=== PATIENT | male | born 1980 | race Caucasian/White ===

== ENCOUNTER 2023-08-14 22:22 | Emergency (ER) | payer OTHER, SELFPAY ==
[2023-08-14 22:26] VITALS: BP 118/97
[2023-08-14 22:45] LABS: % Basophils 0.5 % (0-2); % Eosinophils 2.1 % (0-6); % Immature Granulocytes 0.4 % (0-0.5); % Lymphocytes 27.1 % (20.5-51.1); % Monocytes 5.9 % (1.7-9.3); Absolute Basophils 0.1 10^3/uL (0-0.2); Absolute Eosinophils 0.3 10^3/uL (0-0.7); Absolute Immature Granulocytes 0.1 10^3/uL (0-0.05); Absolute Lymphocytes 3.7 10^3/uL (1.2-3.4); Absolute Monocytes 0.8 10^3/uL (0.1-0.6); Absolute Neutrophils 8.6 10^3/uL (1.4-6.5); Hemoglobin 15.2 g/dL (13.0-18.0); Mean Corpuscular Hgb 27.3 pg (27.0-31.0); Mean Corpuscular Volume 82.7 fL (80.0-94.0); Mean Platelet Volume 8.9 fL (7.4-10.4); Nucleated Red Blood Cells % 0 % (-); Platelet Count 257 10^3/uL (130-400); Red Blood Cell Count 5.56 10^6/uL (4.70-6.10); Red Cell Dist. Width 13.1 % (11.5-14.5); White Blood Cell Count 13.5 10^3/uL (4.8-10.8)
[2023-08-14 23:00] LABS: ALT (SGPT) 32 U/L (0-50); AST (SGOT) 30 U/L (17-59); Albumin 4.9 g/dl (3.5-5.0); Alkaline Phosphatase 100 U/L (38-126); Blood Urea Nitrogen 24 mg/dl (9-20); Calcium 9.6 mg/dl (8.4-10.2); Carbon Dioxide 28 mmol/L (22-30); Chloride 101 mmol/L (98-107); Glucose 137 mg/dl (70-99); Sodium 135 mmol/L (135-145); Total Bilirubin 0.5 mg/dl (0.2-1.3); eGFR > 60.00
[2023-08-14 23:12] LABS: Troponin I < 0.012 ng/ml
[2023-08-14 23:23] VITALS: BP 180/113
[2023-08-14 23:31] LABS: TSH Reflex To Free T4 4.61 uIU/ml (0.47-4.68)
--- NOTE | 2023-08-14 23:34 | ED.GENMED ---
History of Present Illness
<JAMEE Helms - Last Filed: 08/15/23 06:44>
General
Chief Complaint: Heart Rate Problem
Source: patient
Exam Limitations: none
Time Seen by Provider: 08/14/23 23:33
Travel History
Have you had any contact with someone who has COVID-19?: No
Do you have any symptoms of coronavirus? Fever > 100 degrees, chills, cough, shortness of breath, sore throat, loss of taste or smell, muscle aches, or headache?: No
History of Present Illness
History of Present Illness:
43 year old male with history of hypothyroidism on Synthroid presents w/ c/o palpitations x90 minutes. He reports he was putting his son to bed when he noticed his heart racing. He admits having a similar experience in December 2023. He was seen
here and had a negative cardiac work up. He had a Holter monitor placed for 48 hours. He denies follow up with cardiology. He denies any SOB, CP, weakness, or fatigue. He admits he has not been compliant with his Synthroid taking 'a quarter of his
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 He also admits to drinking increased amount of coffee.
Review of Systems
<JAMEE Helms - Last Filed: 08/15/23 06:44>
Review of Systems
Allergies reviewed?: Yes
All Other Systems: Not applicable
Constitutional: Reports no symptoms
EENT: Reports no symptoms
Respiratory: Reports no symptoms
Cardiac: Reports palpitations
ABD/GI: Reports no symptoms
: Reports no symptoms
Musculoskeletal: Reports no symptoms
Skin: Reports no symptoms
Neurological: Reports no symptoms
Endocrine: Reports no symptoms
Hematologic/Lymphatic: Reports no symptoms
Psychiatric: Reports no symptoms
Phy Exam
<Claire Oliver [facility] - Last Filed: 08/15/23 06:44>
General Physical Exam
General Presentation: well appearing and no apparent distress
General Skin: warm and dry
General Habitus: normal
General Mental: alert
General Hydration: appears well hydrated
ENT Exam
ENT Exam: EOMI, pharynx normal, neck supple and normocephalic
Eye Exam
Eye Exam: PERRL, cornea clear and conjunctiva normal
Cardiovascular Exam
Cardiovascular Exam: no edema, no murmur, normal peripheral pulses, irregularly irregular and tachycardia
Pulmonary Exam
Pulmonary Exam: lungs clear, no respiratory distress, no rales, no crackles, no rhonchi, no stridor, no wheezing and no cough
Gastrointestinal Exam
Gastrointestinal Exam: normal bowel sounds, non tender, soft, no organomegaly, no pulsatile mass and non distended
Neurological Exam
Neurological Exam: alert, oriented x3, no motor deficits and speech normal
Musculoskeletal Exam
Musculoskeletal Exam: full ROM and no edema
Skin Exam
Skin Exam: normal color, warm/dry, no rash and no petechia
Psychiatric Exam
Psychiatric Exam: normal mood/affect
Scores
<ST [facility] - Last Filed: 08/15/23 06:44>
[id number] Score for Afib Stroke Risk
Score: 1
Anticoagulation Recommendations: Consider anticoagulation (as validated in nonvalvular fib)
<Randi Patton DO - Last Filed: 08/15/23 03:42>
[id number] Score for Afib Stroke Risk
Age in Years (65=0, 65-74=1, >/=75=2): <65
Sex (Female=+1): Male
Congestive Heart Failure History (Yes=+1): No
Hypertension History (Yes=+1): Yes
Stroke/TIA/Thromboembolism History (Yes=+2): No
Vascular Disease History (Yes=+1): No
Diabetes Mellitus (Yes=+1): No
Score: 1
Anticoagulation Recommendations: Consider anticoagulation (as validated in nonvalvular fib)
Course
<JAMEE Helms - Last Filed: 08/15/23 06:44>
Orders/Labs/Results
Orders:
Orders
08/14/23 22:27
Electrocardiogram (*1) Urgent
Reason for Study: Palpitations
08/14/23 22:28
EKG- Treatment ONCE
08/14/23 22:39
Complete Blood Count/With Diff Urgent
Comprehensive Metabolic Panel Urgent
TSH Reflex To Free T4 Urgent
Troponin I Routine
08/14/23 23:33
Diltiazem 125 mg/125 ml Nss [Cardizem] 125 mg in 125 ml .ROUTE .STK-MED
Diltiazem HCl [Cardizem] 25 mg .ROUTE .STK-MED ONE
08/14/23 23:34
Diltiazem 125 mg/125 ml Nss [Cardizem] 125 mg in 125 ml IV NOW
Initial dose in mg/hr, then titrate:: 10
Titrate to keep:: Heart rate 80-100 bpm
Titrate by mg/hr:: 5 mg/hr
Frequency of titrations (minutes):: 15
Maximum dose in mg/hr:: 15
Diltiazem HCl [Cardizem] 20 mg IV NOW STA
08/15/23 00:53
Propofol [Diprivan] 20 ml .ROUTE .STK-MED
08/15/23 00:54
0.9% Sodium Chloride 1000 ml [Nss] 1,000 ml IV BOLUS
08/15/23 02:02
EKG [Electrocardiogram (*1)] Urgent
Reason for Study: Tachycardia
Other Reason for Exam: post conversion from a fib
08/15/23 02:03
EKG- Treatment ONCE
Abnormal Lab Results
08/14/23
22:39
WBC 13.5 H 10^3/uL
(4.8-10.8)
Abs Immat Gran (auto) 0.1 H 10^3/uL
(0-0.05)
Absolute Neuts (auto) 8.6 H 10^3/uL
(1.4-6.5)
Absolute Lymphs (auto) 3.7 H 10^3/uL
(1.2-3.4)
Absolute Monos (auto) 0.8 H 10^3/uL
(0.1-0.6)
BUN 24 H mg/dl
(9-20)
Glucose 137 H mg/dl
(70-99)
08/14/23 22:39
08/14/23 22:39
Vital Signs
Initial and Last Documented VS:
Initial Vital Signs
Temp Pulse Resp BP Pulse Ox
99.9 F 51 19 118/97 98
08/14/23 22:26 08/14/23 22:26 08/14/23 22:26 08/14/23 22:26 08/14/23 22:26
Last Documented Vital Signs
Temp Pulse Resp BP Pulse Ox
98.8 F 80 17 138/85 94
08/15/23 01:17 08/15/23 03:45 08/15/23 03:45 08/15/23 03:45 08/15/23 03:45
<Randi Patton, DO - Last Filed: 08/15/23 03:42>
Orders/Labs/Results
Orders:
Orders
08/14/23 22:27
Electrocardiogram (*1) Urgent
Reason for Study: Palpitations
08/14/23 22:28
EKG- Treatment ONCE
08/14/23 22:39
Complete Blood Count/With Diff Urgent
Comprehensive Metabolic Panel Urgent
TSH Reflex To Free T4 Urgent
Troponin I Routine
08/14/23 23:33
Diltiazem 125 mg/125 ml Nss [Cardizem] 125 mg in 125 ml .ROUTE .STK-MED
Diltiazem HCl [Cardizem] 25 mg .ROUTE .STK-MED ONE
08/14/23 23:34
Diltiazem 125 mg/125 ml Nss [Cardizem] 125 mg in 125 ml IV NOW
Initial dose in mg/hr, then titrate:: 10
Titrate to keep:: Heart rate 80-100 bpm
Titrate by mg/hr:: 5 mg/hr
Frequency of titrations (minutes):: 15
Maximum dose in mg/hr:: 15
Diltiazem HCl [Cardizem] 20 mg IV NOW STA
08/15/23 00:53
Propofol [Diprivan] 20 ml .ROUTE .STK-MED
08/15/23 00:54
0.9% Sodium Chloride 1000 ml [Nss] 1,000 ml IV BOLUS
08/15/23 02:02
EKG [Electrocardiogram (*1)] Urgent
Reason for Study: Tachycardia
Other Reason for Exam: post conversion from a fib
08/15/23 02:03
EKG- Treatment ONCE
Abnormal Lab Results
08/14/23
22:39
WBC 13.5 H 10^3/uL
(4.8-10.8)
Abs Immat Gran (auto) 0.1 H 10^3/uL
(0-0.05)
Absolute Neuts (auto) 8.6 H 10^3/uL
(1.4-6.5)
Absolute Lymphs (auto) 3.7 H 10^3/uL
(1.2-3.4)
Absolute Monos (auto) 0.8 H 10^3/uL
(0.1-0.6)
BUN 24 H mg/dl
(9-20)
Glucose 137 H mg/dl
(70-99)
08/14/23 22:39
08/14/23 22:39
Vital Signs
Initial and Last Documented VS:
Initial Vital Signs
Temp Pulse Resp BP Pulse Ox
99.9 F 51 19 118/97 98
08/14/23 22:26 08/14/23 22:26 08/14/23 22:26 08/14/23 22:26 08/14/23 22:26
Last Documented Vital Signs
Temp Pulse Resp BP Pulse Ox
98.8 F 80 17 138/85 94
08/15/23 01:17 08/15/23 03:45 08/15/23 03:45 08/15/23 03:45 08/15/23 03:45
Procedures
<Randi Patton, DO - Last Filed: 08/15/23 03:42>
Cardioversion
Indication:: Afib
Performed by:: MYSELF
Synchronized?: Yes
Energy Used: 200 joules
Number of attempts: 1
Successful?: Yes
Complications: NONE
ASA Risk Score: Class II
Any reaction or bad outcome to prior sedation/anesthesia?: No history of a reaction
Sedation level to be attained: moderate
Chart and allergies reviewed: Yes
Patient reassessed prior to sedation: Yes
Time out completed at (validating right patient & procedure): 01:15
History of difficult intubation: No
Airway free of obstruction: Yes
Patient has a gag reflex: Yes
Patient is able to open mouth: Yes
Patient has no dentures: Yes
Patient has no loose teeth: Yes
Medication administered by Provider during Moderate Sedation: IV Propofol (mg)
Total dose administered: 100
Time drug administered: 01:17
Start Time: :17
Stop Time: 01:33
<JAMEE Helms - Last Filed: 08/15/23 06:44>
MDM/Problems Addressed
Differential Diagnosis Includes:
Paroxysmal Afib, atrial flutter, tachycardia, thyroid disorder. Paroxysmal Afib was considered d/t ECG findings consistent with absent P waves and irregularly irregular pulse. Patient heart rate has been ranging 160-180 bpm. Patient's initial BP was
190/101. Thyroid disorder and recent changes to Synthroid dosage could be inducing afib. However, TSH levels are normal. Atrial flutter ruled out with ECG findings. IV Cardizem 5mg bolus given while in the ER with no resolution. Plan to electric
cardiovert with 200J for return of sinus rhythm.
<JAMEE Helms - Last Filed: 08/15/23 06:44>
*Critical Care Note
Total Time (30-74mins, 75-104mins- exclusive of procedures): Not Applicable
ED Attending Note
<JAMEE Helms - Last Filed: 08/15/23 06:44>
-
Portions of this chart may have been created with voice recognition software.� Occasional wrong word or��sound alike� substitutions may have occurred due to the inherent limitations of voice recognition software.
<Randi Patton DO - Last Filed: 08/15/23 03:42>
ED Attending Note
Patient seen and examined by attending physician: Yes
I performed the substantive portion of visit, reviewed & personally made and approve the management plan that is documented in note by myself or BRUNA.: Yes
I performed a history and physical exam of patient and discussed management with resident, I reviewed resident's note and agree with documented findings and plan of care.: Yes
ED Attending Note:
43-year-old gentleman with history of hypertension, hypothyroidism, prediabetes who complains of palpitations that began somewhat suddenly around 10 PM tonight while getting his children ready for bed. Palpitations have persisted prompting ED
visit. He does admit to somewhat similar sporadic palpitations last summer and was evaluated in this ED in December with unremarkable evaluation as well as unremarkable evaluation with his PCP.
No return of palpitations until tonight. He denies chest pain or shortness of breath, no dizziness nor lightheadedness.
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
His only daily medication is Synthroid. He tries to manage his hypertension with weight loss which he admits is difficult to do during tax season.
No history of drug use and lifelong non-smoker.
He admits to moderate daily caffeine use but no decongestant use.
No recent travel, denies leg pain or swelling.
GENERAL: Alert , in no apparent distress
EYE: pupils equal and reactive
NECK: Supple, no significant adenopathy.
ENT: o/p clr, mmm.
CARDIAC: Irregularly irregular, tachycardic
LUNGS: Clear breath sounds bilaterally, no acute respiratory distress,
ABDOMEN: Soft, without focal tenderness, no r/g, no cvat
NEUROLOGICAL: Alert and oriented, no focal neuro deficits
SKIN: Warm and dry, skin intact.
MUSCULOSKELETAL: No edema, well perfused.
PSYCH: Normal and appropriate interaction.
Patient presents with new onset atrial fibrillation with rapid ventricular response.
Moderate hypertension, he remains hemodynamically stable. Initial triage temperature recorded as 99.9 �F. Patient denies feeling febrile, no recent URI and repeat oral temperature, he is afebrile.
IV Cardizem bolus and drip initiated with no significant improvement in ventricular response. He does admit to improvement in palpitations however.
Labs show mildly elevated white blood cell count of 13.5, unremarkable chemistries. Random glucose of 137. Troponin is negative. TSH is normal at 4.61.
Will plan for electrical cardioversion. Risks and benefits discussed along with alternatives to treatment including trial of IV Pronestyl versus rebolus of IV Cardizem.
Patient agreeable to synchronized electrical cardioversion.
No history of adverse events with anesthesia. No loose teeth. He ate a banana just prior to onset of symptoms other than this his last meal was earlier in the evening.
08/15/2023 0208 AM
Patient cardioverted successfully with 1 synchronized shock 200 J. Moderate sedation with IV propofol. No complications during procedure.
Repeat EKG shows normal sinus rhythm at 99.
Patient is [id number] score of 1 for hypertension.
Due to cardioversion we will plan for 1 month course of Eliquis.
Discussed importance of prompt follow-up with cardiology for recheck and further evaluation.
Recommend he avoid any further alcoholic beverages, significantly curb caffeine consumption.
08/15/2023 0341 AM
Patient is bright and alert, remains in normal sinus rhythm. Hemodynamically stable.
Will discharge to home with 1 month course of Eliquis 5 mg twice daily.
Levothyroxine has been refilled.
Recommend prompt follow-up with cardiology for recheck.
Encouraged to avoid NSAIDs as well as aspirin while on Eliquis as well as avoid any further alcohol consumption.
Discharge Plan
Departure
Patient Disposition: Home (Routine Discharge)
Date of Disposition: 08/15/23
Time of Disposition: 03:32
Patient with high blood pressure during this ER visit?: Yes
Condition: Good
Discharge Problem:
Paroxysmal atrial fibrillation with rapid ventricular response
Instructions: Atrial Fibrillation (DC), Cardioversion (DC), Moderate Sedation in Adults (DC)
Prescriptions:
New
levothyroxine 50 mcg capsule
50 mcg PO DAILY Qty: 60 0RF
Eliquis 5 mg tablet
5 mg PO BID Qty: 28 0RF
No Action
levothyroxine [Levoxyl] 50 mcg Tablet
50 mcg PO DAILY
Referrals:
Tray Link MD [Family Provider] -
Magan Cage MD [Active] - Call in 1-3 days for appt
Interventions
Interventions:
*Risk Screen - Suicide Last Done: 08/15/23 04:00
*General Assessment Last Done: 08/14/23 22:32
*Neglect/Abuse Screening Last Done: 08/15/23 04:00
ED- Fall Risk Assessment Last Done: 08/14/23 23:45
*ED COVID-19 Vaccine History Last Done: 08/14/23 22:32
*Nursing Disposition Last Done: 08/15/23 04:00
ED- Cardiac Assessment Last Done: 08/14/23 23:45
ED- Pulmonary Assessment Last Done: 08/14/23 23:45
Discharge Date and Time
Discharge Date/Time: 08/15/23 04:00
Print Language: UKRAINIAN
[2023-08-14] MEDS: CARDIZEM 20 MG IV (23:37)
[2023-08-14] MEDS: CARDIZEM 125 IV (23:38)
[2023-08-14 23:45] VITALS: BP 197/101
[2023-08-14 23:51] VITALS: BMI 41.4
[2023-08-15] VITALS (23 sets, daily range): BP systolic 120–194; BP diastolic 70–128
[2023-08-15] MEDS: NSS 1000 IV (00:59)
== END 2023-08-15 04:00 | disposition home or self-care (01) ==
LOC: EMR 22:22
PROVIDERS: Emergency Medicine; EMERGENCY PHYSICIAN Emergency Medicine; FAMILY PHYSICIAN Family Medicine
DX: I48.0 Paroxysmal atrial fibrillation (principal); I10 Essential (primary) hypertension; E03.9 Hypothyroidism, unspecified; R73.03 Prediabetes; Z79.01 Long term (current) use of anticoagulants
CPT/HCPCS: 99284; 92960; 96374; 96376; 96361; 80053; 84443; 84484; 85025; 93005

== ENCOUNTER → 2023-09-18 07:13 | Outpatient (REF) | payer OTHER, SELFPAY | LOC: RCS 07:13 | PROVIDERS: ATTENDING PHYSICIAN Internal Medicine Cardiovascular Disease; FAMILY PHYSICIAN Family Medicine | DX: I48.91 Unspecified atrial fibrillation (principal) | CPT/HCPCS: 93306 ==

== ENCOUNTER → 2023-10-02 | Outpatient (REF) | payer OTHER, SELFPAY | LOC: DHSLP | PROVIDERS: ATTENDING PHYSICIAN Internal Medicine Cardiovascular Disease | DX: G47.33 Obstructive sleep apnea (adult) (pediatric) (principal) | CPT/HCPCS: 95800 ==

== ENCOUNTER 2025-03-29 15:43 | Inpatient (IN) | payer OTHER, SELFPAY ==
[2025-03-29 11:09] VITALS: BP 156/89
--- NOTE | 2025-03-29 11:45 | ED.GENMED ---
History of Present Illness
<Josephine Macedo MD, Resident - Last Filed: 03/29/25 15:01>
General
Chief Complaint: Abdominal Pain
Source: patient and significant other
Exam Limitations: none
Time Seen by Provider: 03/29/25 11:30
Nursing documentation reviewed up to this point in time: agreed with
History of Present Illness
History of Present Illness:
44yo M with a hx of HTN and hypothyroid who presents with subacute abdominal pain.
Pt began experiencing pain overnight on Saturday. Pain began in the epigastric, mid-abdominal area and recently localized to RLQ. That area is extremely tender and painful to touch. It also is more painful (8/10) with walking and with bending and
externally rotating R leg to tie his shoe. Since Sat pm, he has not had any PO intake of solids, and has drank some hot water and coffee. Feels dehydrated and feels nauseous, but primarily just has low appetite. No vomiting. No diarrhea. Has been
feeling constipated but had BM yesterday, which was non-bloody. Has been passing flatus and burping; feels bloated. Denies f/c. Has been urinating appropriately. Has not had appendix removed prior. Has not taken anything for the pain at home. Has no
hx of GERD; initial epigastric pain did not extend through chest and was not burning in nature.
Past History
<Josephine Macedo MD, Resident - Last Filed: 03/29/25 15:01>
Past History
ED Past Medical History: HTN and Hypothyroidism
ED Past Surgical History: None
Patient has exhibited threatening behavior?: No
Social History
Personal:
Living: with family
Review of Systems
<Josephine Macedo MD, Resident - Last Filed: 03/29/25 15:01>
Review of Systems
All Other Systems: ROS reviewed and negative except as documented in HPI and ROS
Constitutional: Reports no symptoms
EENT: Reports no symptoms
Respiratory: Reports no symptoms
Cardiac: Reports no symptoms
ABD/GI: Reports abdominal pain, nausea and constipated
: Reports no symptoms
Musculoskeletal: Reports no symptoms
Skin: Reports no symptoms
Neurological: Reports no symptoms
Psychiatric: Reports no symptoms
Phy Exam
<Josephine Macedo MD, Resident - Last Filed: 03/29/25 15:01>
General Physical Exam
General Presentation: mild distress
General age: appears stated age
General Skin: warm and dry
General Habitus: obese
General Mental: alert
Cardiovascular Exam
Cardiovascular Exam: regular rate/rhythm and no edema
Heart Sounds: normal
Pulmonary Exam
Pulmonary Exam: no respiratory distress
Gastrointestinal Exam
Gastrointestinal Exam: soft, non distended and tender (tender to palpation in RLQ ; no rebound, no guarding)
Neurological Exam
Neurological Exam: alert
Musculoskeletal Exam
Musculoskeletal Exam: full ROM and no edema
Skin Exam
Skin Exam: normal color
Psychiatric Exam
Psychiatric Exam: normal mood/affect
Course
<Josephine Macedo MD, Resident - Last Filed: 03/29/25 15:01>
Orders/Labs/Results
Orders:
Orders
03/29/25 11:13
EKG [Electrocardiogram (*1)] Urgent
Reason for Study: Abdominal Pain
EKG- Treatment ONCE
03/29/25 12:01
CT Abd/pelvis W Iv Cont Urgent
Comment:
Reason For Exam: suspect appendicitis
03/29/25 12:02
0.9% Sodium Chloride 1000 ml [Nss] 1,000 ml IV BOLUS
03/29/25 12:13
Complete Blood Count/With Diff Urgent
Comprehensive Metabolic Panel Urgent
03/29/25 12:21
Ketorolac [Toradol] 15 mg IV NOW STA
03/29/25 14:00
LevoFLOXacin 750 MG/150 ML [Levaquin] 750 mg in 150 ml IV Q24H
MetroNIDAZOLE 500 MG/100 ML [Flagyl 500 mg] 100 ml IV Q12H
Abnormal Lab Results
03/29/25
12:13
WBC 18.5 H 10^3/uL
(4.8-10.8)
Abs Immat Gran (auto) 0.1 H 10^3/uL
(0-0.05)
Absolute Neuts (auto) 15.1 H 10^3/uL
(1.4-6.5)
Absolute Monos (auto) 1.9 H 10^3/uL
(0.1-0.6)
Neutrophils % 81.7 H %
(42.2-75.2)
Lymphocytes % 7.2 L %
(20.5-51.1)
Monocytes % 10.3 H %
(1.7-9.3)
Sodium 132 L mmol/L
(135-145)
Chloride 95 L mmol/L
(98-107)
Glucose 117 H mg/dl
(70-99)
Total Bilirubin 3.3 H mg/dl
(0.2-1.3)
03/29/25 12:13
03/29/25 12:13
Vital Signs
Initial and Last Documented VS:
Initial Vital Signs
Temp Pulse Resp BP Pulse Ox
99.6 F 100 18 156/89 96
03/29/25 11:09 03/29/25 11:09 03/29/25 11:09 03/29/25 11:09 03/29/25 11:09
Last Documented Vital Signs
Temp Pulse Resp BP Pulse Ox
99.6 F 96 18 149/78 97
03/29/25 11:09 03/29/25 12:00 03/29/25 12:00 03/29/25 12:00 03/29/25 12:00
<Eddie Kamara, DO - Last Filed: 03/29/25 13:54>
Orders/Labs/Results
Orders:
Orders
03/29/25 11:13
EKG [Electrocardiogram (*1)] Urgent
Reason for Study: Abdominal Pain
EKG- Treatment ONCE
03/29/25 12:01
CT Abd/pelvis W Iv Cont Urgent
Comment:
Reason For Exam: suspect appendicitis
03/29/25 12:02
0.9% Sodium Chloride 1000 ml [Nss] 1,000 ml IV BOLUS
03/29/25 12:13
Complete Blood Count/With Diff Urgent
Comprehensive Metabolic Panel Urgent
03/29/25 12:21
Ketorolac [Toradol] 15 mg IV NOW STA
03/29/25 14:00
LevoFLOXacin 750 MG/150 ML [Levaquin] 750 mg in 150 ml IV Q24H
MetroNIDAZOLE 500 MG/100 ML [Flagyl 500 mg] 100 ml IV Q12H
Abnormal Lab Results
03/29/25
12:13
WBC 18.5 H 10^3/uL
(4.8-10.8)
Abs Immat Gran (auto) 0.1 H 10^3/uL
(0-0.05)
Absolute Neuts (auto) 15.1 H 10^3/uL
(1.4-6.5)
Absolute Monos (auto) 1.9 H 10^3/uL
(0.1-0.6)
Neutrophils % 81.7 H %
(42.2-75.2)
Lymphocytes % 7.2 L %
(20.5-51.1)
Monocytes % 10.3 H %
(1.7-9.3)
Sodium 132 L mmol/L
(135-145)
Chloride 95 L mmol/L
(98-107)
Glucose 117 H mg/dl
(70-99)
Total Bilirubin 3.3 H mg/dl
(0.2-1.3)
03/29/25 12:13
03/29/25 12:13
Vital Signs
Initial and Last Documented VS:
Initial Vital Signs
Temp Pulse Resp BP Pulse Ox
99.6 F 100 18 156/89 96
03/29/25 11:09 03/29/25 11:09 03/29/25 11:09 03/29/25 11:09 03/29/25 11:09
Last Documented Vital Signs
Temp Pulse Resp BP Pulse Ox
99.6 F 96 18 149/78 97
03/29/25 11:09 03/29/25 12:00 03/29/25 12:00 03/29/25 12:00 03/29/25 12:00
<Josephine Macedo MD, Resident - Last Filed: 03/29/25 15:01>
MDM/Problems Addressed
Differential Diagnosis Includes:
Suspect acute appendicitis (migrating general/epigastric abd pain to RLQ localized, exacerbated by bending/walking)
Other ddx:
Constipation, colicky gas pain (not relieved w BM yesterday)
SBO (bloating, nausea, no appetite, but pt with flatus & BM)
Psoas or intraabdominal abscess (less likely given lack of fever, onset)
Colitis/enteritis (no diarrhea, no LLQ pain)
Renal calculi (no dysuria, no flank pain)
CO (r/o w EKG)
MDM/Problems Addressed:
- CT a/p w IV contrast
- 1L NSS IVF
- Toradol 15mg IM
- EKG
<Josephine Macedo MD, Resident - Last Filed: 03/29/25 15:01>
*Pulse Oximetry
SaO2: 96
Oxygen Mode of Delivery: Room air
Patient hypoxic: no
*Critical Care Note
Total Time (30-74mins, 75-104mins- exclusive of procedures): Not Applicable
<Josephine Macedo MD, Resident - Last Filed: 03/29/25 15:01>
Update Note
Update Note:
1:45pm
CT a/p w evidence of perforated Meckel's diverticulum:
IMPRESSION: As described above, CT findings are highly suggestive of perforation of Meckel's diverticulum within the right upper quadrant. Adjacent contained extraluminal air with significant inflammatory stranding of the fat in the right upper
quadrant, and inflammatory thickening of adjacent small bowel loops and right colon.
No evidence for free intraperitoneal air in the rest of the abdomen or pelvis. No evidence of drainable abscess.
Fatty infiltration of the liver.
Will start IV abx (levofloxacin & metronidazole; pt has penicillin allergy)
Will plan for admission to hospitalist service
<Eddie Kamara DO - Last Filed: 03/29/25 13:54>
Update Note
Update Note:
1:45pm
CT a/p w evidence of perforated Meckel's diverticulum:
IMPRESSION: As described above, CT findings are highly suggestive of perforation of Meckel's diverticulum within the right upper quadrant. Adjacent contained extraluminal air with significant inflammatory stranding of the fat in the right upper
quadrant, and inflammatory thickening of adjacent small bowel loops and right colon.
No evidence for free intraperitoneal air in the rest of the abdomen or pelvis. No evidence of drainable abscess.
Fatty infiltration of the liver.
Will start IV abx & plan for admission to hospitalist service.
1353 CT shows localized perforation of the bowel. Question related to Meckel's diverticulum. Given his leukocytosis and contained perforation, IV antibiotics and admit
ED Attending Note
<Josephine Macedo MD, Resident - Last Filed: 03/29/25 15:01>
-
Portions of this chart may have been created with voice recognition software.� Occasional wrong word or��sound alike� substitutions may have occurred due to the inherent limitations of voice recognition software.
<Eddie Kamara DO - Last Filed: 03/29/25 13:54>
ED Attending Note
Patient seen and examined by attending physician: Yes
I performed a history and physical exam of patient and discussed management with resident, I reviewed resident's note and agree with documented findings and plan of care.: Yes
ED Attending Note:
44-year-old male presents with right-sided abdominal discomfort that began early Saturday morning and has persisted. No vomiting but does admit to mild loss of appetite. No hematochezia or hematemesis. Exam: Obese, moderate right sided abdominal
tenderness, moderate right lower quadrant tenderness, no peritoneal findings, no respiratory distress. Assessment plan: Suspect appendicitis. Check CT, labs and reassess
Discharge Plan
Departure
Patient Disposition: Admit
Date of Disposition: 03/29/25
Time of Disposition: 14:12
Admit to: Med/Surg
Admit to doctor: Jaspal Levin
Presentation/result/management discussed w/ accepting MD/DO: General Surgery
Patient with high blood pressure during this ER visit?: Yes
Condition: Fair
Covid-19: Not Applicable
Discharge Problem:
Perforated abdominal viscus
Prescriptions:
No Action
levothyroxine [Levoxyl] 50 mcg Tablet
50 mcg PO DAILY
amlodipine [Norvasc] 5 mg Tablet
5 mg PO QPM
Referrals:
Wilmer Corley Jr., [Family Provider, Internal Medicine]
Interventions
Interventions:
*Risk Screen - Suicide Last Done: 03/29/25 11:12
*General Assessment Last Done: 03/29/25 11:12
*Neglect/Abuse Screening Last Done: 03/29/25 12:00
*ED COVID-19 Vaccine History Last Done: 03/29/25 11:12
*ED Influenza Vaccine History Last Done: 03/29/25 11:12
[facility] Fall Risk Assessment Tool Last Done: 03/29/25 12:02
LB-Vxbrfh-Brqyiljdou Assessment Last Done: 03/29/25 12:00
Discharge Date and Time
Print Language: SAMI
[2025-03-29 11:58] VITALS: BMI 41.5
[2025-03-29 12:00] VITALS: BP 149/78
[2025-03-29] MEDS: NSS 1000 IV ×2 (12:22→19:44)
[2025-03-29] MEDS: TORADOL 15 MG IV (12:22)
[2025-03-29 12:29] LABS: Hematocrit 44.7 % (39.0-52.0); Hemoglobin 14.9 g/dL (13.0-18.0); Mean Corp Hgb Conc. 33.3 g/dL (33.0-37.0); Mean Corpuscular Volume 81.9 fL (80.0-94.0); Nucleated Red Blood Cells % 0 % (-); Platelet Count 232 10^3/uL (130-400); Red Cell Dist. Width 13.4 % (11.5-14.5)
[2025-03-29 12:45] LABS: ALT (SGPT) 19 U/L (0-50); AST (SGOT) 17 U/L (17-59); Albumin 4.7 g/dl (3.5-5.0); Alkaline Phosphatase 85 U/L (38-126); Blood Urea Nitrogen 12 mg/dl (9-20); Calcium 9.0 mg/dl (8.4-10.2); Carbon Dioxide 28 mmol/L (22-30); Chloride 95 mmol/L (98-107); Estimated Creatinine Clearance 117 ml/min; Glucose 117 mg/dl (70-99); Potassium 4.2 mmol/L (3.5-5.1); Sodium 132 mmol/L (135-145); Total Protein 7.8 g/dl (6.3-8.2); eGFR > 60.00
[2025-03-29] MEDS: FLAGYL 500 MG 100 IV (14:15)
--- NOTE | 2025-03-29 14:54 | HPS.HSE ---
Addendum entered and electronically signed by Jaspal Levin MD 03/30/25 08:54:
This is a delayed entry note, I saw and examined the patient independently on 03/29/2025.
The [employer]'s note was reviewed and I agree with the note, assessment and plan except where noted below.
Comment: This is a 44-year-old male premature , open bilateral inguinal hernia repair as an who presents with 1 day of sudden onset right-sided abdominal pain that initially began more midline and then transition to the right upper
quadrant. CT imaging concerning for a contained perforated Meckel's diverticulum. Clinically stable, exam reassuring. Will manage nonoperatively for now.
- No acute surgical intervention at this time.
- Admit to inpatient-[facility]- General Surgery - Dr. Levin for perforated Meckel's diverticulum
- Condition: Stable
- Vitals: q4h
- Activity: Unlimited
- Nursing Instructions: TLD: None Wound Care: N/a
- GI/Diet: NPO, IV fluids, Zofran PRN
- Abx: Zosyn
- Labs: CMP, CBC
- Pain: Tylenol 650 q6h fito, Oxy 5mg q6h prn, Dilaudid 0.5mg q2h prn
- PPx: SQH q12, SCDs, Incentive Spirometer
- Home Meds: Cardiopulm: Amlodipine Endo: Levothyroxine
- Consults: None
Original Note:
Family Physician
-
Family Physician: Wilmer Corley Jr.
Chief Complaint
-
abdominal pain
History of Present Illness
44 yo male with a h/o htn, hypothryoid, and bilateral inguinal hernia repair as an infant who presents through the ED today with right sided abdominal pain. He notes that the pain awakened him from sleep yesterday morning around 1-2am. Initially,
the pain was more predominant just below the rib cage but now has localized to the right lateral mid/hemiabdomen with focal tenderness present without rebound, rigidity or guarding. He denies nausea or vomiting. He felt he may have been constipated
but was passing regular BM's prior to onset of pain. He notes bloating and anorexia. He has been passing flatus. He denies fevers or chills.
Medical History
Past Medical History
Past Medical History: Reports HTN, Hypothyroidism and Other (morbid obesity)
Past Surgical History: Reports Other (Bilateral inguinal hernia repair as a child)
Social History
Tobacco: Non-smoker
Alcohol: Other (rare)
Personal:
Living: With Family
Family History
Family History: Not pertinent
Allergies / Home Medications
Allergies reflects when Allergies were last updated in [facility].
Home Medications with original date entered in [facility]
Allergy/Medication List:
Patient Allergies
Allergy/AdvReac Type Severity Reaction Status Date / Time
Penicillins Allergy Hives Verified 03/29/25 11:11
�Medication �Instructions �Recorded �Confirmed �Type
levothyroxine 50 mcg tablet 50 mcg PO DAILY Thyroid 08/14/23 03/29/25 History
(Levoxyl)
amlodipine 5 mg tablet (Norvasc) 5 mg PO QPM Blood Pressure 03/29/25 03/29/25 History
Review of Systems
-
History Source: Patient and Family
A 12 point ROS was completed and negative except as noted: Yes
Physical Exam
Vital Signs
Vital Signs
Temp Pulse Resp BP Pulse Ox
99.6 F 96 18 149/78 97
03/29/25 11:09 03/29/25 12:00 03/29/25 12:00 03/29/25 12:00 03/29/25 12:00
Physical Exam
General: Well Developed and No Apparent Distress
HEENT: NormoCephalic and Moist mucous membranes
Respiratory: Non Labored Respirations
GI: Soft, Non Distended, Tender (right lateral mid/hemiabdomen) and Other (no rebound, rigidity or guarding)
Skin: Warm and Dry
Neuro: Awake, Alert and AO x 3
Psych: Calm
Laboratory Results
-
03/29/25 12:13
03/29/25 12:13
Laboratory Results
Total Bilirubin 3.3 mg/dl (0.2-1.3) H 03/29/25 12:13
AST 17 U/L (17-59) 03/29/25 12:13
ALT 19 U/L (0-50) 03/29/25 12:13
Alkaline Phosphatase 85 U/L (38-126) 03/29/25 12:13
Data Reviewed
-
CT Scan: Image Personally Visualized and interpreted, Report Reviewed by me, Discussed with Physician, Discussed with Patient and Discussed with Family
Lab Data: Labs Reviewed by me, Discussed with Physician, Discussed with Patient and Discussed with Family
Old Records: Reviewed
Impression/Plan
-
IMPRESSION: 44 yo male with a h/o htn, hypothyroid, and bilateral inguinal hernia repair as an who presents through the ED today with right sided abdominal pain over the past 36+hours. No associated fevers, nausea or vomiting. Does have
anorexia and bloating. Focally tender to the right lateral hemiabdomen without peritonitic signs. CT imaging reviewed and consisted with contained perforation of a Meckel's diverticulum. Inflammatory changes to adjacent small and large bowel. No
abscess currently present. Leukocytosis present with WBC of 18.5. Mild hyponatremia with top normal creatinine suspect secondary to hypovolemia. Afebrile. VSS without hypotension or tachycardia.
PLAN:
Admit to surgical service
IV zosyn being initiated in the ED at pharmacist recommendation, will continue if no allergic reaction otherwise will start levo/flagyl
IVF with NSS @100ml/hr
NPO with ice chips/meds
Lovenox and scds for VTE ppx
No plans for emergent surgery today, will follow closely on antibiotics and bowel rest. Ideally, will be able to get him through this acute issue with nonoperative measures to pursue interval SBR after inflammatory process has had time to
improve/resolve. May require emergent surgery this admission if his condition deteriorates vs IR drain placement if abscess forms.
--- NOTE | 2025-03-29 15:42 | CM ---
chart reviewed and spoke with patient at ED bedside
Lives with , 2 kids and a dog name Drew
Independent with ADLs and working [employer]
no DME
PCP Dr. Wilmer Castellano
RX plan yes
Pharmacy [facility] on [address]
no hx of VN nor SNF
DCP is to go home with no needs
can drive him home at DC
CM will continue to follow up for any dcp needs
[2025-03-29] MEDS: ZOSYN 50 IV ×2 (16:02→21:30)
[2025-03-29 16:10] VITALS: BP 127/58
[2025-03-29 18:21] VITALS: BP 141/93; BMI 40.0
--- NOTE | 2025-03-29 18:55 | PTCARENOTE ---
received pt from ER via stretcher, accompanied by ER staff. Pt AAO x3, HUYNH well, ambulatory to bed, no c/o weakness. VSS. On room air- pulse ox 95%. Abd obese, soft, tender RLQ. Pt NPO except for meds/sips clears/ice chips. Oriented to [facility],
currently resting in bed. Will continue to monitor.
[2025-03-29] MEDS: LOVENOX 40 MG SC (19:42)
[2025-03-29] MEDS: TORADOL 10 MG IV (19:42)
[2025-03-29] MEDS: NORVASC 5 MG PO (19:44)
[2025-03-29 23:00] VITALS: BP 136/74
[2025-03-30] MEDS: NSS 1000 IV ×3 (03:25→17:12)
[2025-03-30] MEDS: ZOSYN 50 IV ×4 (03:25→21:41)
[2025-03-30] MEDS: SYNTHROID 50 MCG PO (06:20)
[2025-03-30 07:36] LABS: Hematocrit 40.2 % (39.0-52.0); Hemoglobin 13.2 g/dL (13.0-18.0); Mean Corp Hgb Conc. 32.8 g/dL (33.0-37.0); Mean Corpuscular Volume 83.4 fL (80.0-94.0); Platelet Count 202 10^3/uL (130-400); Red Cell Dist. Width 13.3 % (11.5-14.5)
[2025-03-30 08:10] LABS: ALT (SGPT) 16 U/L (0-50); AST (SGOT) 15 U/L (17-59); Albumin 3.7 g/dl (3.5-5.0); Alkaline Phosphatase 78 U/L (38-126); Blood Urea Nitrogen 15 mg/dl (9-20); Calcium 8.3 mg/dl (8.4-10.2); Carbon Dioxide 28 mmol/L (22-30); Chloride 102 mmol/L (98-107); Estimated Creatinine Clearance 106 ml/min; Glucose 99 mg/dl (70-99); Potassium 3.8 mmol/L (3.5-5.1); Sodium 135 mmol/L (135-145); Total Protein 6.6 g/dl (6.3-8.2); eGFR > 60.00
[2025-03-30 08:23] VITALS: BP 138/71
--- NOTE | 2025-03-30 11:49 | W.PN.GS2 ---
Today's Communication / Plan
-
-- Clears
-- Abx: Zosyn
-- Timing and need for operative intervention pending clinical course over the next 24-48 hours
Assessment / Plan
-
Patient is a 44 yo M p/w acute Meckel's diverticulitis
AVSS
Labs notable for downtrending WBC
Clinical stability with slight improvement in ability to tolerate liquids and downtrending WBC. The natural history and pathophysiology of Meckel's diverticulum's and diverticulitis was reviewed. Plan for continued medical management. We
discussed that should he have worsening pain or a rise in his WBC would recommend operative intervention during this presentation.
-- Clears
-- Abx: Zosyn
-- Timing and need for operative intervention pending clinical course over the next 24-48 hours
Subjective Data
-
Date of Service: March 30, 2025
Major complaints. Denies any worsening abdominal pain. No nausea or vomiting. No fevers. Reports passing flatus, no BMs. Reports tolerating water without any issues.
Objective Data
-
Intake and Output
03/29/25 03/30/25 03/31/25
06:59 06:59 06:59
Output Total 400 / 400
Balance -400 / -400
Output:
Urine, Voided 400 / 400
Vital Signs
Temp Pulse Resp BP Pulse Ox
98.1 F 80 18 138/71 93
03/30/25 08:23 03/30/25 08:23 03/30/25 08:23 03/30/25 08:23 03/30/25 08:23
Lab Results
03/30/25 06:56
03/30/25 06:56
Calcium 8.3 mg/dl (8.4-10.2) L 03/30/25 06:56
Total Bilirubin 3.3 mg/dl (0.2-1.3) H 03/30/25 06:56
AST 15 U/L (17-59) L 03/30/25 06:56
ALT 16 U/L (0-50) 03/30/25 06:56
Alkaline Phosphatase 78 U/L (38-126) 03/30/25 06:56
Total Protein 6.6 g/dl (6.3-8.2) 03/30/25 06:56
Albumin 3.7 g/dl (3.5-5.0) 03/30/25 06:56
Physical Exam
-
Gen: NAD
Abd: soft, focally tender in RLQ/mid-abdomen, no diffuse pain, obese, non-peritoneal
Patient has a romero catheter: No
Patient has a central line: No
[2025-03-30 15:49] VITALS: BP 149/70
[2025-03-30] MEDS: LOVENOX 40 MG SC (17:10)
[2025-03-30] MEDS: NORVASC 5 MG PO (17:10)
[2025-03-30 23:39] VITALS: BP 142/76
[2025-03-31] MEDS: NSS 1000 IV (02:12)
[2025-03-31] MEDS: ZOSYN 50 IV ×4 (03:37→21:59)
[2025-03-31] MEDS: SYNTHROID 50 MCG PO (06:14)
[2025-03-31 07:40] VITALS: BP 155/79
--- NOTE | 2025-03-31 12:23 | W.PN.GS2 ---
Today's Communication / Plan
-
FLD
Abx
Assessment / Plan
-
Patient is a 44 yo M p/w acute Meckel's diverticulitis
AVSS
Labs notable for downtrending WBC
Clinical stability with slight improvement in ability to tolerate liquids and downtrending WBC. The natural history and pathophysiology of Meckel's diverticulum's and diverticulitis was reviewed. Plan for continued medical management. We
discussed that should he have worsening pain or a rise in his WBC would recommend operative intervention during this presentation.
-- Adv to fulls
-- Recheck labs tomorrow am
-- Abx: Zosyn
-- Serial exams
-- If continued improvement, plan to defer surgery to outpt
-- If WBC increase, fever or other clinical decline, would rpt imaging
-- DVT ppx
-- Ambulate
Subjective Data
-
Date of Service: March 31, 2025
AFVSS, feels much improved, pain nearly resolved, dneies n/v, amaris cld
Objective Data
-
Intake and Output
03/30/25 03/31/25 04/01/25
06:59 06:59 06:59
Intake Total 480 / 480 50 / 50
Output Total 400 / 400
Balance 80 / 80 50 / 50
Intake:
Oral fluids 480 / 480
IV piggybacks 50 / 50
Output:
Urine, Voided 400 / 400
Other:
Number of approximated MODERATE 1
amounts of urine
Vital Signs
Temp Pulse Resp BP Pulse Ox
97.8 F 78 16 155/79 97
03/31/25 07:40 03/31/25 07:40 03/31/25 07:40 03/31/25 07:40 03/31/25 07:40
Lab Results
03/30/25 06:56
03/30/25 06:56
Calcium 8.3 mg/dl (8.4-10.2) L 03/30/25 06:56
Total Bilirubin 3.3 mg/dl (0.2-1.3) H 03/30/25 06:56
AST 15 U/L (17-59) L 03/30/25 06:56
ALT 16 U/L (0-50) 03/30/25 06:56
Alkaline Phosphatase 78 U/L (38-126) 03/30/25 06:56
Total Protein 6.6 g/dl (6.3-8.2) 03/30/25 06:56
Albumin 3.7 g/dl (3.5-5.0) 03/30/25 06:56
Physical Exam
-
Gen: NAD
Abd: soft, obese, minimal ttp to ruq
Patient has a romero catheter: No
Patient has a central line: No
--- NOTE | 2025-03-31 13:16 | CM ---
Patient seen bedside.
Patient stated surgery may be pushed until April.
Denies home care needs at this time, thinks he will be transitioned to oral anbx.
Plan: home, no needs anticipated.
[2025-03-31 15:05] VITALS: BP 163/88
[2025-03-31] MEDS: LOVENOX 40 MG SC (17:25)
[2025-03-31] MEDS: NORVASC 5 MG PO (17:27)
[2025-03-31 23:56] VITALS: BP 145/79
[2025-04-01] MEDS: ZOSYN 50 IV ×2 (03:56→09:59)
[2025-04-01] MEDS: SYNTHROID 50 MCG PO (05:12)
[2025-04-01 08:21] LABS: Hematocrit 41.1 % (39.0-52.0); Hemoglobin 13.6 g/dL (13.0-18.0); Mean Corp Hgb Conc. 33.1 g/dL (33.0-37.0); Mean Corpuscular Volume 83.0 fL (80.0-94.0); Platelet Count 285 10^3/uL (130-400); Red Cell Dist. Width 12.9 % (11.5-14.5)
[2025-04-01 08:23] VITALS: BP 155/71
[2025-04-01 08:53] LABS: Blood Urea Nitrogen 11 mg/dl (9-20); Calcium 8.8 mg/dl (8.4-10.2); Carbon Dioxide 28 mmol/L (22-30); Chloride 99 mmol/L (98-107); Estimated Creatinine Clearance 106 ml/min; Glucose 95 mg/dl (70-99); Potassium 4.3 mmol/L (3.5-5.1); Sodium 137 mmol/L (135-145); eGFR > 60.00
--- NOTE | 2025-04-01 09:43 | W.PN.GS2 ---
Today's Communication / Plan
-
-- LRD
-- Abx: Zosyn, DC on Augmentin for 7 days
-- OK for DC if tolerating diet
Assessment / Plan
-
Patient is a 44 yo M p/w acute Meckel's diverticulitis
AVSS
Labs notable for downtrending WBC
Clinical improvement - less pain, tolerating diet, and downtrending WBC. Plan for continued medical management. If tolerates low residue diet will plan for discharge with outpatient antibiotic management and close interval follow-up with repeat CT
scan imaging to confirm resolution and for operative planning as a relates to future surgery. Dietary education provided. All questions answered.
-- LRD
-- Abx: Zosyn, DC on Augmentin for 7 days
-- DVT: Lovenox
-- OK for DC if tolerating diet
Subjective Data
-
Date of Service: April 01, 2025
No complaints. Feels improved. Less abdominal pain and discomfort. Tolerated fulls, no nausea or vomiting. Passing flatus and stools.
Objective Data
-
Intake and Output
03/31/25 04/01/25 04/02/25
06:59 06:59 06:59
Intake Total 480 / 480 1960 / 1960
Output Total 400 / 400 600 / 600
Balance 80 / 80 1360 / 1360
Intake:
Oral fluids 480 / 480 1860 / 1860
IV piggybacks 100 / 100
Output:
Urine, Voided 400 / 400 600 / 600
Other:
Number of approximated MODERATE 1 3 1
amounts of urine
Vital Signs
Temp Pulse Resp BP Pulse Ox
97.9 F 70 18 155/71 97
04/01/25 08:23 04/01/25 08:23 04/01/25 08:23 04/01/25 08:23 04/01/25 08:23
Lab Results
04/01/25 06:50
04/01/25 06:50
Calcium 8.8 mg/dl (8.4-10.2) 04/01/25 06:50
Total Bilirubin 3.3 mg/dl (0.2-1.3) H 03/30/25 06:56
AST 15 U/L (17-59) L 03/30/25 06:56
ALT 16 U/L (0-50) 03/30/25 06:56
Alkaline Phosphatase 78 U/L (38-126) 03/30/25 06:56
Total Protein 6.6 g/dl (6.3-8.2) 03/30/25 06:56
Albumin 3.7 g/dl (3.5-5.0) 03/30/25 06:56
Physical Exam
-
Gen: NAD
Abd: soft, minimal RIGHT mid-abdominal tenderness, ND/obese, non-peritoneal (overall improved)
Patient has a romero catheter: No
Patient has a central line: No
--- NOTE | 2025-04-01 10:09 | CM ---
MD entered order for discharge.
Spoke with pt he ordered a meal . Pt needs to tolerate meal prior to dc.
Pt agrees with dc today .
His Kendra will drive him home.
PLAN Home no needs
--- NOTE | 2025-04-02 11:57 | W.DS.TRANS ---
Addendum entered and electronically signed by DIETER Hawkins 04/02/25 12:01:
dictated #[id number]
Original Note:
DC Summary - [employer]
-
Discharge Instructions:
Discharge Diagnosis/Procedures Meckel's diverticulitis
Diet Low Residue
Additional Diets Avoid high-fiber foods such as raw fruits and
raw vegetables, large amounts of nuts or seeds
Activity As tolerated
Driving Restrictions As prior to admission
Bathing Restrictions None
Others Tests CT abdomen/pelvis prior to follow-up appointment
Instructions:
Stand-Alone Forms:
Changes to Home Medications: No
Discharge Medications:
DC Medications w/original date entered in [facility]
levothyroxine 50 mcg tablet (Levoxyl) 50 mcg PO DAILY Thyroid 08/14/23
amlodipine 5 mg tablet (Norvasc) 5 mg PO QPM Blood Pressure 03/29/25
acetaminophen 325 mg tablet 650 mg (2 x 325 mg) PO Q4HPRN PRN mild pain #1 tab 04/01/25
amoxicillin 875 mg-potassium clavulanate 125 mg tablet 1 tab PO Q12 antibiotic 7 days #14 tabs 04/01/25
Home Medication Changes
Pending Results: No
== END 2025-04-01 14:04 | disposition home or self-care (01) | DRG 394 ==
LOC: 4 EAST ACU 15:43
PROVIDERS: Registered Nurse; Surgery; ADMITTING PHYSICIAN Surgery; EMERGENCY PHYSICIAN Emergency Medicine; FAMILY PHYSICIAN Family Medicine
DX: K63.1 Perforation of intestine (nontraumatic) (principal); E87.1 Hypo-osmolality and hyponatremia; Z68.41 Body mass index [BMI] 40.0-44.9, adult; Q43.0 Meckel's diverticulum (displaced) (hypertrophic); E66.01 Morbid (severe) obesity due to excess calories
CPT/HCPCS: 74177; 80048; 80053; 85025; 85027; 93005; 96365; 96375; 99285; Q9967

== ENCOUNTER 2025-04-15 23:46 | Inpatient (IN) | payer OTHER, SELFPAY ==
[2025-04-15 19:16] VITALS: BP 146/83
[2025-04-15 19:37] LABS: Hematocrit 40.1 % (39.0-52.0); Hemoglobin 13.4 g/dL (13.0-18.0); Mean Corp Hgb Conc. 33.4 g/dL (33.0-37.0); Mean Corpuscular Volume 81.0 fL (80.0-94.0); Nucleated Red Blood Cells % 0 % (-); Platelet Count 271 10^3/uL (130-400); Red Cell Dist. Width 13.1 % (11.5-14.5)
[2025-04-15 20:00] VITALS: BP 138/88
[2025-04-15 20:06] LABS: COVID-19 Antigen Negative (Negative)
[2025-04-15 20:07] LABS: ALT (SGPT) 18 U/L (0-50); AST (SGOT) 19 U/L (17-59); Albumin 4.0 g/dl (3.5-5.0); Alkaline Phosphatase 82 U/L (38-126); Blood Urea Nitrogen 12 mg/dl (9-20); Calcium 8.8 mg/dl (8.4-10.2); Carbon Dioxide 21 mmol/L (22-30); Chloride 97 mmol/L (98-107); Glucose 123 mg/dl (70-99); Lipase 57 U/L (23-300); Potassium 4.3 mmol/L (3.5-5.1); Sodium 129 mmol/L (135-145); Total Protein 7.0 g/dl (6.3-8.2); eGFR > 60.00
--- NOTE | 2025-04-15 21:32 | ED.GENMED ---
History of Present Illness
General
Chief Complaint: Abdominal Pain
Time Seen by Provider: 04/15/25 21:32
History of Present Illness
History of Present Illness:
FOCUSED PAST MEDICAL HISTORY
- A-fib, high blood pressure
REVIEW OF OLD RECORDS
- Of note, last several white counts have all been elevated since 2023
- The patient came in over 2 weeks ago diagnosed with Meckel's diverticulitis with contained perforation on IV antibiotics and improvement, discharged on Augmentin
Note:
CHIEF COMPLAINT(S)
Fever, recurrent high white blood cell count, and diffuse abdominal tenderness.
HISTORY OF PRESENT ILLNESS
The patient is a 44-year-old male who presents with a history of fever and recurrent elevated white blood cell count. He mentioned that his white blood cell count has been high since his previous visit earlier this month, which had initially
improved with antibiotic treatment, decreasing to around 18,000. However, he recently experienced another episode of fever, describing it as reaching 103�F when he was under covers last night. The patient reports a sensation of fatigue and has noted
a diffuse sense of abdominal tenderness, though not pain, without significant peritoneal signs. He has been eating normally. He expresses concern that his current symptoms could be related to a previous issue and is unsure if it could be something
he had experienced before.
PHYSICAL EXAM
General: Alert, no acute distress.
Skin: Warm, dry.
Head: Normocephalic, atraumatic.
Neck: Supple, trachea midline.
Eye Ears, nose, mouth and throat: Oral mucosa moist.
Cardiovascular: Normal peripheral perfusion, no edema.
Respiratory: Respirations are non-labored.
Gastrointestinal: Abdomen with diffuse tenderness, no peritoneal signs.
Back: Normal range of motion, normal alignment.
Musculoskeletal: Normal ROM, normal strength.
Neurological: Alert and oriented to person, place, time, and situation, no focal neurological deficit observed.
Psychiatric: Cooperative, appropriate mood & affect.
PROBLEM LIST
Acute Problems:
- Fever
- Elevated white blood cell count
- Diffuse abdominal tenderness
PLAN
- Obtain a detailed history and conduct a thorough examination to understand the cause of the patients symptoms.
- Consider further diagnostic workup, including repeat laboratory tests to evaluate the white blood cell count and any infectious or inflammatory markers.
- Evaluate if advanced imaging or other investigations are warranted based on clinical suspicion.
- Provide symptomatic relief for fever and general discomfort.
DIFFERENTIAL DIAGNOSIS
The Differential Diagnosis includes, in no particular order and is not limited to:
1. Infection (e.g., bacterial, viral)
2. Inflammatory bowel disease
3. Appendicitis
4. Gastroenteritis
5. Pelvic inflammatory disease
6. Malignancy (hematologic or abdominal)
7. Autoimmune disorder
8. Medication-related side effects
9. Liver or biliary tract disease
10. Pancreatitis
RADIOLOGY
- CT imaging obtained which appears to have increased amount of inflammatory changes at the known Meckel's diverticular region
LABS
- White count 21, sodium 129, glucose 123, lactic 0.6, total bili 2.2, COVID-negative, flu negative
SUMMARY OF ENCOUNTER
The patient, a 44-year-old male, presented with a recurrent history of fever and a notably elevated white blood cell count, indicating potential infection or inflammation. Upon arrival in the emergency department, the patients white blood cell count
was observed to be significantly elevated at 21,000, previously recorded at 18,000, 15,000, and 11,000 earlier this month. Initial antibiotic treatment had shown partial improvement. Current symptoms include fever and a feeling of diffuse abdominal
tenderness. An evaluation was performed with additional imaging, revealing increased inflammation compared to previous assessments.
EMERGENCY TREATMENTS ADMINISTERED
Intravenous antibiotics were initiated to address the suspected infection or inflammatory condition, as there was evidence of increased inflammation on imaging.
PLAN
Further diagnostic workup will be conducted, including monitoring the response to intravenous antibiotic therapy. Continue evaluation based on imaging findings, with possible reconsideration of antibiotic regimen pending further assessment.
INDEPENDENT REVIEW OF LABS AND INTERPRETATION OF TESTS
My independent review of the white blood cell count indicates a marked elevation to 21,000, which is higher than previous results from earlier this month, affirming the likelihood of an ongoing infectious or inflammatory process.
MEDICATION RECONCILIATION
Intravenous antibiotics administered to treat confirmed inflammation and elevated white blood cell count.
MEDICAL DECISION MAKING
Number and Complexity of Problems Addressed: Chronic conditions affecting care include history of fever, recurrent elevated white blood cell count, and diffuse abdominal tenderness. The differential diagnosis includes infection (bacterial, viral),
inflammatory bowel disease, appendicitis, gastroenteritis, pelvic inflammatory disease, malignancy, autoimmune disorder, medication-related side effects, liver or biliary tract disease, and pancreatitis.
Data:
Category 1: Elevated white blood cell count reviewed, and imaging studies indicated increased inflammation. Awaiting official radiology interpretation.
Risk: Prescription medication was prescribed and intravenous antibiotics were administered.
DIAGNOSIS
1. Suspected infection or inflammation, R50.9 (Fever, unspecified)
2. Leukocytosis, D72.829 (Elevated white blood cell count, unspecified)
3. Abdominal tenderness, R10.819 (Other abdominal pain, unspecified site)
UPDATE
- White count concerning and CT still shows significant inflammation
- I spoke to Dr. Pimentel who accepts his service
- Will resume Zosyn
Past History
Past History
ED Past Medical History: HTN and Hypothyroidism
ED Past Surgical History: None
Patient has exhibited threatening behavior?: No
Social History
Personal:
Living: with family
Phy Exam
Physical Exam
Physical Exam:
See HPI
Course
Orders/Labs/Results
Orders:
Orders
04/15/25 19:24
COVID-19 Antigen Urgent
Source: Nasal Swab
Influenza A+B Rapid Molecular Urgent
SHELBI Source: Nasal Swab
Specimen Description:
04/15/25 19:28
CBC/With Diff [Complete Blood Count/With Diff] Urgent
Comprehensive Metabolic Panel Urgent
Lactic Acid Urgent
Lipase Urgent
04/15/25 21:34
CT Abd/pelvis W Iv Cont Urgent
Comment:
Reason For Exam: leukocytosis; pain; recent Meckel's diverticulitis
Abnormal Lab Results
04/15/25
19:28
WBC 21.0 H 10^3/uL
(4.8-10.8)
Abs Immat Gran (auto) 0.1 H 10^3/uL
(0-0.05)
Absolute Neuts (auto) 16.8 H 10^3/uL
(1.4-6.5)
Absolute Monos (auto) 2.3 H 10^3/uL
(0.1-0.6)
Immature Gran % 0.7 H %
(0-0.5)
Neutrophils % 79.9 H %
(42.2-75.2)
Lymphocytes % 8.1 L %
(20.5-51.1)
Monocytes % 11.0 H %
(1.7-9.3)
Sodium 129 L mmol/L
(135-145)
Chloride 97 L mmol/L
(98-107)
Carbon Dioxide 21 L mmol/L
(22-30)
Glucose 123 H mg/dl
(70-99)
Lactic Acid 0.6 L mmol/L
(0.7-2.0)
Total Bilirubin 2.2 H mg/dl
(0.2-1.3)
04/15/25 19:28
04/15/25 19:28
Vital Signs
Initial and Last Documented VS:
Initial Vital Signs
Temp Pulse Resp BP Pulse Ox
37.9 C 112 20 146/83 95
04/15/25 19:16 04/15/25 19:16 04/15/25 19:16 04/15/25 19:16 04/15/25 19:16
Last Documented Vital Signs
Temp Pulse Resp BP Pulse Ox
37.9 C 86 20 138/88 95
04/15/25 19:16 04/15/25 20:00 04/15/25 19:16 04/15/25 20:00 04/15/25 21:34
*Pulse Oximetry
SaO2: 95
Oxygen Mode of Delivery: Room air
Patient hypoxic: no
*Critical Care Note
Total Time (30-74mins, 75-104mins- exclusive of procedures): Not Applicable
ED Attending Note
-
Portions of this chart may have been created with voice recognition software.� Occasional wrong word or��sound alike� substitutions may have occurred due to the inherent limitations of voice recognition software.
Discharge Plan
Departure
Prescriptions:
No Action
levothyroxine [Levoxyl] 50 mcg Tablet
50 mcg PO DAILY
amlodipine [Norvasc] 5 mg Tablet
5 mg PO QPM
acetaminophen [acetaminophen] 325 mg tablet
650 mg PO Q4HPRN PRN (Reason: mild pain) Qty: 1 0RF
amoxicillin-pot clavulanate 875-125 mg tablet
1 tab PO Q12 7 Days Qty: 14 0RF
Referrals:
Wilmer Corley Jr., DO [Family Provider, Internal Medicine]
Interventions
Interventions:
*General Assessment Last Done: 04/15/25 19:16
*Neglect/Abuse Screening Last Done: 04/15/25 21:15
*ED COVID-19 Vaccine History Last Done: 04/15/25 21:16
*ED Influenza Vaccine History Last Done: 04/15/25 21:16
[facility] Fall Risk Assessment Tool Last Done: 04/15/25 21:15
*Risk Screen - Suicide (C-SSRS) Last Done: 04/15/25 21:15
LV-Sepqsu-Acavptlahl Assessment Last Done: 04/15/25 21:15
Discharge Date and Time
Print Language: SURINAMESE
[2025-04-16] VITALS (15 sets, daily range): BP systolic 111–142; BP diastolic 61–84; BMI 39.2
--- NOTE | 2025-04-16 00:24 | HPS.HSE ---
Addendum entered and electronically signed by Horacio Pimentel MD 04/16/25 10:18:
I saw and examined the patient.
The Corner Cutter's note was reviewed and I agree with the note.
Comment: CC: fever, he also had mild abd discomfort but nothing like his index admission. mild ttp to RUQ on exam. Leukocytosis is noted, CT notable for progression of inflammation and likely microperf. Plan for lap assisted possible ex lap with
diverticulectomy. Cont zosyn
Original Note:
Family Physician
-
Family Physician: Wilmer Corley Jr.
Chief Complaint
-
fever, abd discomfort
History of Present Illness
The patient is a 44-year-old male hx of HTN, hypothyroid, afib x1 in 2023 who presents with a history of fever and recurrent elevated white blood cell count. He mentioned that his white blood cell count has been high since his previous visit earlier
this month, which had initially improved with antibiotic treatment, decreasing to around 18,000. However, he recently experienced another episode of fever, describing it as reaching 103�F when he was under covers last night. The patient reports a
sensation of fatigue and has noted a diffuse sense of abdominal tenderness, though not pain, without significant peritoneal signs. He has been eating normally. Drinking fluids with electrolytes. Completed 7 days of augmentin. Saw Dr gant last week
and he felt well. states colon resection was scheduled for August 2025.
CT abd:IMPRESSION:
Findings of worsening perforated Meckel's diverticulum with increased free air and fluid within the right upper quadrant, adjacent to a tubular structure extending off the small bowel. There is associated likely reactive colitis of the ascending and
proximal transverse colon.
Worsening leukocytosis to 21,000
Medical History
Past Medical History
Past Medical History: Reports Arrhythmia (afib x1 in 2023. Cardioverted to NSR), HTN and Hypothyroidism
Past Surgical History: Reports Other (bilat inguinal hernia repair as child)
Social History
Tobacco: Non-smoker
Alcohol: Occasional
Drug: None
Personal:
Living: With Family
Employment: Employed
Family History
Family History: Not pertinent
Allergies / Home Medications
Allergies reflects when Allergies were last updated in [facility].
Home Medications with original date entered in [facility]
Allergy/Medication List:
Allergies
Allergy/AdvReac Type Severity Reaction Status Date / Time
penicillin V Allergy hives in Verified 04/15/25 19:16
2007-
tolerated
piperacillin-tazobactam
2024
Home Medications
levothyroxine 50 mcg tablet (Levoxyl) 50 mcg PO DAILY Thyroid 08/14/23
amlodipine 5 mg tablet (Norvasc) 5 mg PO QPM Blood Pressure 03/29/25
acetaminophen 325 mg tablet 650 mg (2 x 325 mg) PO Q4HPRN PRN mild pain #1 tab 04/01/25
Review of Systems
-
History Source: Patient
A 12 point ROS was completed and negative except as noted: Yes
Constitutional: Reports Fatigue and Chills (fever to 103 )
EENT: Reports No Symptoms
Respiratory: Reports No Symptoms
Cardiac: Reports No Symptoms
Abdomen/GI: Reports Diarrhea (x3 yesterday. none today) and Pain (RLQ tenderness- describes more as 'discomfort' not pain. 05/08. Had more pain last admit. )
: Reports No Symptoms
Musculoskeletal: Reports No Symptoms
Skin: Reports No Symptoms
Neurological: Reports No Symptoms
Hematologic/Lymphatic: Reports No Symptoms
Psych: Reports No Symptoms
Physical Exam
Vital Signs
Vital Signs
Temp Pulse Resp BP Pulse Ox
100.3 F 86 20 138/88 95
04/15/25 19:16 04/15/25 20:00 04/15/25 19:16 04/15/25 20:00 04/15/25 21:34
Physical Exam
General: Well Developed, Well Nourished, No Apparent Distress, Comfortable, Conversant and Obese
HEENT: NormoCephalic, Anicteric, Moist mucous membranes, Atraumatic and Mullins Conjunctivae
Respiratory: Clear and Non Labored Respirations
Cardiac: S1/S2 and Regular Rhythm
Breast: Deferred by me
GI: Soft, Normal Bowel Sounds and Tender (tenderness RLQ with deep palpation. pt states pain much less that prior admit. 05/08. No peritoneal signs. ); No Non Tender
Rectal: Deferred by Provider
Genito-urinary: Deferred by me
Musculoskeletal: No Clubbing and No Cyanosis
Skin: Warm and Dry
Neuro: Awake, Oriented, No Motor Deficits and Nonfocal/grossly intact
Psych: Calm
Laboratory Results
-
04/15/25 19:28
04/15/25 19:28
Laboratory Results
Lactic Acid 0.6 mmol/L (0.7-2.0) L 04/15/25 19:28
Total Bilirubin 2.2 mg/dl (0.2-1.3) H 04/15/25 19:28
AST 19 U/L (17-59) 04/15/25 19:28
ALT 18 U/L (0-50) 04/15/25 19:28
Alkaline Phosphatase 82 U/L (38-126) 04/15/25 19:28
Lipase 57 U/L (23-300) 04/15/25 19:28
Data Reviewed
-
CT Scan: Discussed with Physician
Lab Data: Discussed with Physician and Discussed with Patient
Impression/Plan
-
IMPRESSION:
44 yo male who presents back to ED for complaints of fever and diffuse tenderness to RLQ. Pt had similar presentation 03/29/25 and found to have perforated meckels diverticulum and was treated with iv abx then a course of po augmentin which he
completed. He felt well until yesterday when he had fevers and chills and difuse tenderness again RLQ. CT abd IMPRESSION:
Findings of worsening perforated Meckel's diverticulum with increased free air and fluid within the right upper quadrant, adjacent to a tubular structure extending off the small bowel. There is associated likely reactive colitis of the ascending and
proximal transverse colon.
PLAN:
Admit to inpatient- General Surgery - Dr. Pimentel
#Perforated Meckel's diverticulum
- Condition: Stable
- Vitals: per unit guideline
- Activity: Unlimited
- GI/Diet: NPO, IV fluids, Zofran PRN
- Abx: Zosyn
- Labs: CMP, CBC in am, trend lactic (1st one normal 0.6)
- Pain: Tylenol 650 q4prn, dilaudid prn
- PPx: lovenox, SCDs, Incentive Spirometer
#htn
cont norvasc
#hypothyroid
-cont levothyroxine
Full code
[2025-04-16] MEDS: ZOSYN 50 IV ×3 (00:56→18:10)
[2025-04-16] MEDS: NSS 1000 IV ×2 (02:35→22:32)
--- NOTE | 2025-04-16 02:40 | PTCARENOTE ---
Pt. arriving to 2S from ER via stretcher and able to walk to room bed with steady gait and no device. Pt. A&Ox3, in NAD, even and unlabored breathing on RA, and VSS. Pt. oriented to room and unit policies, bed locked and in lowest position, side
rails in place, call light within reach, and questions/concerns addressed at time of assessment.
[2025-04-16] MEDS: SYNTHROID 50 MCG PO (06:27)
[2025-04-16 08:39] LABS: Hematocrit 38.7 % (39.0-52.0); Hemoglobin 12.7 g/dL (13.0-18.0); Mean Corp Hgb Conc. 32.8 g/dL (33.0-37.0); Mean Corpuscular Volume 82.5 fL (80.0-94.0); Nucleated Red Blood Cells % 0 % (-); Platelet Count 230 10^3/uL (130-400); Red Cell Dist. Width 13.2 % (11.5-14.5)
[2025-04-16 09:12] LABS: ALT (SGPT) 16 U/L (0-50); AST (SGOT) 17 U/L (17-59); Albumin 3.6 g/dl (3.5-5.0); Alkaline Phosphatase 72 U/L (38-126); Blood Urea Nitrogen 11 mg/dl (9-20); Calcium 8.3 mg/dl (8.4-10.2); Carbon Dioxide 23 mmol/L (22-30); Chloride 101 mmol/L (98-107); Estimated Creatinine Clearance 114 ml/min; Glucose 103 mg/dl (70-99); Potassium 4.3 mmol/L (3.5-5.1); Sodium 133 mmol/L (135-145); Total Protein 6.5 g/dl (6.3-8.2); eGFR > 60.00
--- NOTE | 2025-04-16 09:55 | CM ---
patient seen at bedside
IA completed
OR today per patient
Lives with , children 2 story home, flight stairs to 2nd floor bed/bath
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
Denies DME
Denies VN/Rehab
PCP: Wilmer Corley
Pharmacy: [address], [place]
PLAN: Home, no needs anticipated, CM to continue to follow
[2025-04-16] MEDS: ZOSYN IV (11:39)
--- NOTE | 2025-04-16 14:54 | W.IMMPOSTOP ---
Surgical Immed Post Op Note
-
Primary Surgeon: Loren
Assisting: Ameya WHITMORE
Pre-op Diagnosis: Meckel's diverticulitis
Post-op Diagnosis: Same
Procedure Performed: Diagnostic laparoscopy, exploratory laparotomy, small bowel resection, right hemicolectomy, partial omentectomy
Anesthesia Type: GETA
Specimen / Cultures: Meckel's diverticulum; transverse colon
Estimated Blood Loss: 40cc
Complications: None immediate
Operative Findings: Meckel's socked in to right upper quadrant, densely adherent to transverse colon, large abscess pocket with pus and stool - contained and immediately suctioned and irrigated out, >50% transverse colon wall erosion; approx 60% of
omentum thickened and inflamed, resected; side-side stapled small bowel anastomosis and side-side ileo-transverse stapled anastomosis, crotch stitch x2 at each anastomosis and closure of mesenteric defects.
--- NOTE | 2025-04-16 15:00 | OR.RPT ---
Operative Report
Operative Report
Primary Surgeon: Loren
Assisting: Ameya WHITMORE
Pre-op Diagnosis: Meckel's diverticulitis
Post-op Diagnosis: Same
Procedure Performed: Diagnostic laparoscopy, exploratory laparotomy, small bowel resection, right hemicolectomy, partial omentectomy
Anesthesia Type: GETA
Specimen / Cultures: Meckel's diverticulum; transverse colon
Estimated Blood Loss: 40cc
Complications: None immediate
Operative Findings: Meckel's socked in to right upper quadrant, densely adherent to transverse colon, large abscess pocket with pus and stool - contained and immediately suctioned and irrigated out, >50% transverse colon wall erosion; approx 60% of
omentum thickened and inflamed, resected; side-side stapled small bowel anastomosis and side-side ileo-transverse stapled anastomosis, crotch stitch x2 at each anastomosis and closure of mesenteric defects.
Date of Surgery: 04/16/25
Indications: This 44M developed Meckel's diverticulitis and failed medical management. Diagnostic laparoscopy with possible exploratory laparotomy and diverticulectomy with possible small bowel resection was planned.
Description of procedure: The patient was placed on the operating table in the supine position. General anesthesia was induced. A time-out was completed verifying correct patient, procedure, site, positioning, and special equipment prior to
beginning this procedure. An orogastric tube was placed. The abdomen was prepped and draped in the usual sterile fashion. A stab incision was made in left upper quadrant and the Veress needle was inserted. Proper position was confirmed by aspiration
and saline meniscus test. The abdomen was insufflated with carbon dioxide to a pressure of 12 mmHg. The patient tolerated insufflation well.
A 5mm optical trocar was then inserted at the left lower quadrant. The laparoscope was inserted and the abdomen inspected. No injuries from initial trocar placement or Veress needle insertion were noted. Additional 5mm trocars were then inserted in
the suprapubic space and higher in the left lower quadrant. Attention was turned to the right upper quadrant. The area of concern was encased in densely adherent omentum. The transverse colon was involved in the inflammatory response. Multiple
attempts were made to elevate the transverse colon and tease down the small bowel away from the area but were unsuccessful. The operation was converted to exploratory laparotomy. The inflamed area was explored. Omentum was gently dissected away from
the complex of proximal transverse colon, mesentery and small bowel. A large abscess cavity was entered and pus and stool flowed out from the area. This was rapidly irrigated and suctioned clear. A large defect in the transverse colon was
identified. After painstaking dissection a small severely inflamed Meckel's diverticulum was identified with a full thickness perforation at the distal end. The base of the diverticulum was severely inflamed encompassing about 70% of the bowel
circumference. The transverse colon was controlled first, using a RALPH stapler first distal and then proximal to the defect. A ligasure was used to liberate this segment from the mesentery. Attention was then turned to the small bowel diverticulum.
This segment of small bowel was resected in similar fashion with the RALPH stapler, purple load, 80mm. A side-side anastomosis was created for the small bowel using the same stapler. Two crotch stitches were placed and the mesenteric defect was
closed. The convergence of the staple lines as well a the corners were oversewn with lembert sutures using 2-0 silk. Attention was turned to the colon. Distally the staple line was clean but at the proximal staple line the serosa had from
the colon wall for a fairly large area, this was inherent to the procedure and unavoidable. Given the serosal injury and proximity to the watershed area of the hepatic flexure, the decision was made to proceed with right hemicolectomy. The hepatic
flexure was taken down and the right colon mobilized off the abdominal wall along the avascular plane. The terminal ileum and appendix were mobilized out of the pelvis. The terminal ileum was transected with the RALPH stapler and the right colon,
appendix and terminal ileum were liberated form their mesentery with the ligasure. A large area of greater omentum was heavy and thickened. There was concern the weight of all this tissue could create tension on the anastomosis and it was thus
resected. About 40% of the omentum was left in situ. A side-side stapled ileo-transverse anastomosis was then created with the same stapler in similar fashion to the small bowel anastomosis. The mesenteric defect was closed and two crotch stitches
were placed and then corners dunked and oversewn as well as the area of converging staple lines. The orogastric tube was converted to a nasogastric tube and palpated in the stomach. The abdomen was again irrigated and suctioned clear.
The fascia was closed with running #1 PDS stratafix suture, the subcutaneous tissue was irrigated and the skin closed with valentín. The lap port sites were closed with valentín. A mepilex dressing was placed at the midline and bandaids over the lap
sites.
The patient tolerated the procedure well and was taken to the postanesthesia care unit in stable condition.
[2025-04-16] MEDS: DILAUDID 0.5 MG IV (15:33)
[2025-04-16] MEDS: DILAUDID PCA 30 IV (15:48)
[2025-04-16] MEDS: TORADOL 15 MG IV ×2 (17:20→22:16)
--- NOTE | 2025-04-16 17:28 | PTCARENOTE ---
pt returned from PACU to 2S @1645 via bed. pt drowsy but arousable-oriented to room, pain pump, and post op plan of care. at bedside. NPO w/Left nare NGT to low intermittent suction, output is bloody. O2 2L NC maintained, continuous pox
ready 94-96%. pt educated on importance of coughing, deep breathing. care ongoing.
[2025-04-16] MEDS: LOVENOX 40 MG SC (17:38)
[2025-04-16] MEDS: OFIRMEV 100 IV (17:42)
[2025-04-17] MEDS: OFIRMEV 100 IV ×4 (00:30→17:31)
[2025-04-17] MEDS: NSS IV (00:43)
[2025-04-17] MEDS: ZOSYN 50 IV ×5 (00:53→23:28)
[2025-04-17 03:00] VITALS: BP 124/62
[2025-04-17] MEDS: TORADOL 15 MG IV ×4 (04:52→21:20)
[2025-04-17 07:00] VITALS: BP 123/69
[2025-04-17 07:07] LABS: Hematocrit 37.7 % (39.0-52.0); Hemoglobin 12.7 g/dL (13.0-18.0); Mean Corp Hgb Conc. 33.7 g/dL (33.0-37.0); Mean Corpuscular Volume 82.3 fL (80.0-94.0); Platelet Count 252 10^3/uL (130-400); Red Cell Dist. Width 13.2 % (11.5-14.5)
[2025-04-17] MEDS: SYNTHROID PO (07:30)
[2025-04-17 07:35] LABS: Blood Urea Nitrogen 12 mg/dl (9-20); Calcium 8.0 mg/dl (8.4-10.2); Carbon Dioxide 25 mmol/L (22-30); Chloride 103 mmol/L (98-107); Estimated Creatinine Clearance > 125 ml/min; Glucose 145 mg/dl (70-99); Magnesium 2.4 mg/dl (1.6-2.3); Potassium 4.5 mmol/L (3.5-5.1); Sodium 136 mmol/L (135-145); eGFR > 60.00
--- NOTE | 2025-04-17 09:09 | W.PN.GS2 ---
Today's Communication / Plan
-
NPO/NGT
BEARING MAKER
ABX
Assessment / Plan
-
44 yo male presenting with Meckel's diverticulitis now POD #1 Dx lap converted to open ex lap with SBR and right hemicolectomy, partial omentectomy
AFVSS
Leukocytosis now trending down
H/H stable
Renal function good
Plan:
NPO with ice chips for comfort
NGT to LIWS until good bowel recovery
Analgesia with BEARING MAKER pump and scheduled toradol and ofirmev
C/W IVF
OOB/Ambulate as able
IS while awake
c/w IV zosyn
SCDS with sq Lovenox for VTE ppx
Subjective Data
-
Date of Service: April 17, 2025
Pt seen and examined at bedside with Dr Carney. Feels sore to the right abdomen. Denies n/v. Not yet passing flatus. Not yet been OOB. Voiding without difficulty.
Objective Data
-
Intake and Output
04/16/25 04/17/25 04/18/25
06:59 06:59 06:59
Intake Total 1790 / 1790
Output Total 850 / 850
Balance 940 / 940
Intake:
IV fluids (Total) 1250 / 1250
Normosol 200 / 200
IV piggybacks 450 / 450
Amount instilled into GI Tube ( 90 / 90
Total)
Gastrostomy 0 / 0
[place] Sump 90 / 90
Output:
Gastrointestinal tube output ( 0 / 0
Total)
Gastrostomy 0 / 0
[place] Sump 0 / 0
Urine, Romero 300 / 300
Urine, Voided 550 / 550
Vital Signs
Temp Pulse Resp BP Pulse Ox
97.3 F 73 16 123/69 96
04/17/25 07:00 04/17/25 07:00 04/17/25 07:24 04/17/25 07:00 04/17/25 07:24
Lab Results
04/17/25 06:03
04/17/25 06:03
Calcium 8.0 mg/dl (8.4-10.2) L 04/17/25 06:03
Phosphorus 3.2 mg/dl (2.5-4.5) 04/17/25 06:03
Magnesium 2.4 mg/dl (1.6-2.3) H 04/17/25 06:03
Total Bilirubin 2.5 mg/dl (0.2-1.3) H 04/16/25 08:07
AST 17 U/L (17-59) 04/16/25 08:07
ALT 16 U/L (0-50) 04/16/25 08:07
Alkaline Phosphatase 72 U/L (38-126) 04/16/25 08:07
Total Protein 6.5 g/dl (6.3-8.2) 04/16/25 08:07
Albumin 3.6 g/dl (3.5-5.0) 04/16/25 08:07
Physical Exam
-
NAD
ABD soft, mild distention, expected TTP to the right abdomen, no tenderness to the left abdomen
Midline incision with intact dressing, lap incisions with intact bandages
Patient has a romero catheter: No
Patient has a central line: No
[2025-04-17] MEDS: NSS 1000 IV ×2 (09:24→21:21)
[2025-04-17 11:00] VITALS: BP 132/66
[2025-04-17 13:29] VITALS: BP 112/61; PULSE 63; O2SAT 95
[2025-04-17 15:00] VITALS: BP 138/71
[2025-04-17] MEDS: LOVENOX 40 MG SC (17:50)
[2025-04-17 22:58] VITALS: BP 129/67
[2025-04-18] MEDS: OFIRMEV 100 IV ×5 (00:01→23:50)
[2025-04-18] MEDS: FLUSH (NSS) 1 FLUSH IV (03:19)
[2025-04-18] MEDS: TORADOL 15 MG IV ×4 (03:20→21:51)
[2025-04-18] MEDS: ZOSYN 50 IV ×4 (05:25→23:04)
[2025-04-18] MEDS: SYNTHROID 50 MCG PO (05:52)
[2025-04-18 06:54] LABS: Hematocrit 32.3 % (39.0-52.0); Hemoglobin 10.4 g/dL (13.0-18.0); Mean Corp Hgb Conc. 32.2 g/dL (33.0-37.0); Mean Corpuscular Volume 82.8 fL (80.0-94.0); Platelet Count 286 10^3/uL (130-400); Red Cell Dist. Width 13.3 % (11.5-14.5)
[2025-04-18 06:56] LABS: Blood Urea Nitrogen 17 mg/dl (9-20); Calcium 7.9 mg/dl (8.4-10.2); Carbon Dioxide 26 mmol/L (22-30); Chloride 104 mmol/L (98-107); Estimated Creatinine Clearance 114 ml/min; Glucose 99 mg/dl (70-99); Potassium 4.3 mmol/L (3.5-5.1); Sodium 137 mmol/L (135-145); eGFR > 60.00
[2025-04-18 07:00] VITALS: BP 130/69
[2025-04-18] MEDS: NSS 1000 IV ×2 (08:49→16:48)
--- NOTE | 2025-04-18 09:50 | W.PN.GS2 ---
Addendum entered and electronically signed by Hernando Carney MD 04/18/25 15:29:
Patient seen and examined with surgical LOAD MIXER this afternoon.
Ambulated the halls earlier today. Sitting in chair up out of bed. Generally reports good postoperative pain control just muscular soreness and feels better when he utilizes a pillow.
No nausea, no flatus or bowel movements
AFVSS
NAD AAO x 3
Abdominal exam deferred today as currently sitting in chair
NG tube in place with gastric contents, modest output
Postop labs look good. Hemoglobin 10.4 reflecting acute blood loss anemia and equilibration from surgery but no signs of active bleeding
A/P: POD #2 status post ex lap, SBR and right hemicolectomy for perforated Meckel's complicated by abscess
Overall doing well postoperatively
Adjusted pain regimen as patient was not utilizing CORN PICKER
Continue NG tube, IV fluids awaiting signs of postoperative GI function
Repeat labs tomorrow a.m.
IV fluid hydration
Original Note:
Today's Communication / Plan
-
d/c CORN PICKER
c/w IVF/NGT
Assessment / Plan
-
44 yo male presenting with Meckel's diverticulitis now POD #2 Dx lap converted to open ex lap with SBR and right hemicolectomy, partial omentectomy
AFVSS
Leukocytosis trending down
Mild acute anemia secondary to hemodilution and expected operative losses, do not suspect active bleeding.
Renal function good
Plan:
NPO with ice chips for comfort
NGT to LIWS until good bowel recovery
D/C CORN PICKER and change to prn dilaudid. Continue scheduled toradol and ofirmev
C/W IVF
OOB/Ambulate as able
IS while awake
c/w IV zosyn
PPI for GI ppx
SCDS with sq Lovenox for VTE ppx
Subjective Data
-
Date of Service: April 18, 2025
Pt seen and examined at bedside. Denies n/v. Not yet passing flatus, hearing a lot of gurgling in his abdomen now. Poor rest last night d/t being awakened a lot overnight for vs, etc. Pain minimal and well controlled, not using CORN PICKER much. Notes his
urine is dark alejandro. Has been OOB/ambulating. Using IS well.
Objective Data
-
Intake and Output
04/17/25 04/18/25 04/19/25
06:59 06:59 06:59
Intake Total 1790 / 1790 2980 / 2980
Output Total 850 / 850 2069
Balance 940 / 940 910 / 910
Intake:
Oral fluids 120 / 120
IV fluids (Total) 1250 / 1250 2049 / 2049
Normosol 200 / 200
IV piggybacks 450 / 450 600 / 600
Amount instilled into GI Tube ( 90 / 90 210 / 210
Total)
Gastrostomy 0 / 0
[place] Sump 90 / 90 210 / 210
Output:
Gastrointestinal tube output ( 0 / 0 520 / 520
Total)
Gastrostomy 0 / 0
[place] Sump 0 / 0 520 / 520
Urine, Romero 300 / 300
Urine, Voided 550 / 550 1550 / 1550
Vital Signs
Temp Pulse Resp BP Pulse Ox
98.3 F 64 16 130/69 93
04/18/25 07:00 04/18/25 07:00 04/18/25 07:00 04/18/25 07:00 04/18/25 07:00
Lab Results
04/18/25 05:51
04/18/25 05:51
Calcium 7.9 mg/dl (8.4-10.2) L 04/18/25 05:51
Phosphorus 3.2 mg/dl (2.5-4.5) 04/17/25 06:03
Magnesium 2.4 mg/dl (1.6-2.3) H 04/17/25 06:03
Total Bilirubin 2.5 mg/dl (0.2-1.3) H 04/16/25 08:07
AST 17 U/L (17-59) 04/16/25 08:07
ALT 16 U/L (0-50) 04/16/25 08:07
Alkaline Phosphatase 72 U/L (38-126) 04/16/25 08:07
Total Protein 6.5 g/dl (6.3-8.2) 04/16/25 08:07
Albumin 3.6 g/dl (3.5-5.0) 04/16/25 08:07
Physical Exam
-
NAD
ABD soft, ND, expected TTP to the right abdomen (improved), no tenderness to the left abdomen
Midline incision with intact dressing, lap incisions with intact bandages
Patient has a romero catheter: No
Patient has a central line: No
[2025-04-18] MEDS: PROTONIX IV 40 MG IV (12:13)
[2025-04-18] MEDS: NSS (PRESERVATIVE FREE) 10 ML IV (12:13)
[2025-04-18 15:00] VITALS: BP 138/81
[2025-04-18] MEDS: LOVENOX 40 MG SC (16:49)
[2025-04-18] MEDS: MUCINEX 600 MG PO (21:47)
--- NOTE | 2025-04-18 22:45 | PTCARENOTE ---
Received patient at change of shift. NGT to left nare with yellow output, patient tolerating tube. Patient c/o of congestion. STAT med given. Care ongoing.
[2025-04-18 23:03] VITALS: BP 142/78
[2025-04-18] MEDS: NSS IV (23:52)
[2025-04-19] MEDS: NSS 1000 IV ×3 (02:43→17:53)
[2025-04-19] MEDS: TORADOL 15 MG IV ×4 (05:00→23:00)
[2025-04-19] MEDS: ZOSYN 50 IV ×4 (05:08→23:07)
[2025-04-19] MEDS: OFIRMEV 100 IV ×2 (05:41→12:31)
[2025-04-19] MEDS: SYNTHROID 50 MCG PO (05:41)
--- NOTE | 2025-04-19 07:13 | W.PN.GS2 ---
Addendum entered and electronically signed by Horacio Pimentel MD 04/19/25 09:27:
CDI query: hyponatremia resolved
Original Note:
Today's Communication / Plan
-
Abx
Await ROBF
F/U labs
Assessment / Plan
-
44 yo male presenting with Meckel's diverticulitis now POD #3 Dx lap converted to open ex lap with SBR and right hemicolectomy, partial omentectomy
AFVSS
Leukocytosis trending down
NGT putput clearking (today is all ice chips)
Mild acute anemia secondary to hemodilution and expected operative losses, do not suspect active bleeding.
Renal function good
Labs pending today
Plan:
NPO with ice chips for comfort
NGT to LIWS until good bowel recovery
Cont prn dilaudid. Continue scheduled toradol and ofirmev
C/W IVF
OOB/Ambulate as able
IS while awake
c/w IV zosyn
PPI for GI ppx
SCDS with sq Lovenox for VTE ppx
Subjective Data
-
Date of Service: April 19, 2025
Pain controlled, ambulating, voiding, feels rumbling but no flatus yet
Objective Data
-
Intake and Output
04/18/25 04/19/25 04/20/25
06:59 06:59 06:59
Intake Total 2980 / 2980 3340 / 3340
Output Total 2069 1625 / 1625
Balance 910 / 910 1715 / 1715
Intake:
Oral fluids 120 / 120 360 / 360
IV fluids (Total) 2049 / 2049 2500 / 2500
IV piggybacks 600 / 600 450 / 450
Amount instilled into GI Tube ( 210 / 210 30 / 30
Total)
[place] Sump 210 / 210 30 / 30
Output:
Gastrointestinal tube output ( 520 / 520 750 / 750
Total)
[place] Sump 520 / 520 750 / 750
Urine, Voided 1550 / 1550 875 / 875
Other:
Number of approximated MODERATE 4
amounts of urine
Vital Signs
Temp Pulse Resp BP Pulse Ox
98.9 F 96 17 142/78 94
04/18/25 23:03 04/18/25 23:03 04/18/25 23:03 04/18/25 23:03 04/18/25 23:03
Calcium 7.9 mg/dl (8.4-10.2) L 04/18/25 05:51
Phosphorus 3.2 mg/dl (2.5-4.5) 04/17/25 06:03
Magnesium 2.4 mg/dl (1.6-2.3) H 04/17/25 06:03
Total Bilirubin 2.5 mg/dl (0.2-1.3) H 04/16/25 08:07
AST 17 U/L (17-59) 04/16/25 08:07
ALT 16 U/L (0-50) 04/16/25 08:07
Alkaline Phosphatase 72 U/L (38-126) 04/16/25 08:07
Total Protein 6.5 g/dl (6.3-8.2) 04/16/25 08:07
Albumin 3.6 g/dl (3.5-5.0) 04/16/25 08:07
Physical Exam
-
Gen: NAD
Abd: soft, approp ttp, midline dressing with single dime size strikethrough, bandaids removed
Patient has a romero catheter: No
Patient has a central line: No
[2025-04-19 07:20] VITALS: BP 140/73
--- NOTE | 2025-04-19 08:55 | PN.CDI ---
CDI
- -
CDI:
Physician Documentation Request
Admit Date: 04/15/25 23:46
Dear Doctor,
Patient admitted for Meckel's diverticulum.
Laboratory Tests
04/15/25 04/16/25 04/17/25
19:28 08:07 06:03
Sodium 129 L 133 L 136
Based on the above, could you clarify in the progress notes, the appropriate diagnosis, if significant, that supports the above abnormalities and additional evaluation, monitoring and/or treatment rendered:
Hyponatremia
Abnormal lab value insignificant
Other
Use of terms such as suspected, likely, concern for, or probable (associated with a specific diagnosis that is being evaluated, monitored, or treated as if it exists) are acceptable and can be coded in the inpatient setting, when documented at the
time of discharge.
Thank you,
Margie Foote RN, BSN
CDI Specialist
Available via [facility] text
Please use your independent medical judgment in providing your response.
--- NOTE | 2025-04-19 08:58 | PN.CDI ---
CDI
- -
CDI:
Physician Documentation Request
Admit Date: 04/15/25 23:46
Dear Doctor,
Patient admitted for Meckel's diverticulum.
Laboratory Tests
04/15/25 04/16/25 04/17/25
19:28 08:07 06:03
Sodium 129 L 133 L 136
Based on the above, could you clarify in the progress notes, the appropriate diagnosis, if significant, that supports the above abnormalities and additional evaluation, monitoring and/or treatment rendered:
Hyponatremia, resolved
Abnormal lab value insignificant
Other
Use of terms such as suspected, likely, concern for, or probable (associated with a specific diagnosis that is being evaluated, monitored, or treated as if it exists) are acceptable and can be coded in the inpatient setting, when documented at the
time of discharge.
Thank you,
Margie Foote RN, BSN
CDI Specialist
Available via [place] text
Please use your independent medical judgment in providing your response.
[2025-04-19 09:32] LABS: Hematocrit 32.4 % (39.0-52.0); Hemoglobin 10.4 g/dL (13.0-18.0); Mean Corp Hgb Conc. 32.1 g/dL (33.0-37.0); Mean Corpuscular Volume 83.7 fL (80.0-94.0); Platelet Count 313 10^3/uL (130-400); Red Cell Dist. Width 13.5 % (11.5-14.5)
[2025-04-19] MEDS: PROTONIX IV 40 MG IV (09:39)
[2025-04-19] MEDS: NSS (PRESERVATIVE FREE) 10 ML IV (09:39)
[2025-04-19 10:19] LABS: Blood Urea Nitrogen 13 mg/dl (9-20); Calcium 8.2 mg/dl (8.4-10.2); Carbon Dioxide 27 mmol/L (22-30); Chloride 104 mmol/L (98-107); Estimated Creatinine Clearance > 125 ml/min; Glucose 80 mg/dl (70-99); Potassium 4.1 mmol/L (3.5-5.1); Sodium 137 mmol/L (135-145); eGFR > 60.00
[2025-04-19] MEDS: MUCINEX 600 MG PO (10:30)
--- NOTE | 2025-04-19 12:00 | PTCARENOTE ---
NG tube clamped for ambulation to BR. Pt had a large black tarry BM and significant amount of flatus. Pt states much less bloated and uncomfortable. Dr Pimentel made aware. NG tube removed as ordered @1015. pt educated concerning starting clear
liquid diet in small amounts and slowly, avoiding carbonation. pt verbalized understanding. care ongoing.
[2025-04-19 12:37] VITALS: BMI 39.2
[2025-04-19 15:00] VITALS: BP 155/75
--- NOTE | 2025-04-19 16:50 | CM ---
Patient seen at bedside on . Patient with no needs at this time.
[2025-04-19] MEDS: LOVENOX 40 MG SC (17:52)
[2025-04-19] MEDS: NSS IV (17:53)
[2025-04-19 23:01] VITALS: BP 140/68
[2025-04-20] MEDS: TORADOL IV ×4 (05:00→22:35)
[2025-04-20] MEDS: ZOSYN 50 IV ×4 (05:01→23:26)
[2025-04-20] MEDS: SYNTHROID 50 MCG PO (05:02)
[2025-04-20 07:20] VITALS: BP 133/64
[2025-04-20] MEDS: PROTONIX IV 40 MG IV (08:48)
[2025-04-20] MEDS: NSS 1000 IV (08:48)
[2025-04-20] MEDS: NSS (PRESERVATIVE FREE) 10 ML IV (08:48)
--- NOTE | 2025-04-20 08:52 | W.PN.GS2 ---
Today's Communication / Plan
-
Adv diet
abx
Assessment / Plan
-
44 yo male presenting with Meckel's diverticulitis now POD #4 Dx lap converted to open ex lap with SBR and right hemicolectomy, partial omentectomy
AFVSS
Leukocytosis normalized
Bowel function returning
Mild acute anemia secondary to hemodilution and expected operative losses, do not suspect active bleeding.
Renal function good
Plan:
Adv to fulls now, LRD for dinner, dietary education provided
Cont prn dilaudid. Continue scheduled toradol and ofirmev
DC IVF
OOB/Ambulate as able
IS while awake
c/w IV zosyn
PPI for GI ppx
SCDS with sq Lovenox for VTE ppx
Subjective Data
-
Date of Service: April 20, 2025
AFVSS, ambulating, voiding, passing stools and flatus, pain controlled
Objective Data
-
Intake and Output
04/19/25 04/20/25 04/21/25
06:59 06:59 06:59
Intake Total 3340 / 3340 3030 / 3030
Output Total 1625 / 1625 500 / 500
Balance 1715 / 1715 2530 / 2530
Intake:
Oral fluids 360 / 360 480 / 480
IV fluids (Total) 2500 / 2500 2310 / 2310
IV piggybacks 450 / 450 150 / 150
Amount instilled into GI Tube ( 30 / 30 90 / 90
Total)
[place] Sump 30 / 30 90 / 90
Output:
Gastrointestinal tube output ( 750 / 750 500 / 500
Total)
[place] Sump 750 / 750 500 / 500
Urine, Voided 875 / 875
Other:
Number of approximated MODERATE 4
amounts of urine
Vital Signs
Temp Pulse Resp BP Pulse Ox
98.7 F 61 16 133/64 95
04/20/25 07:20 04/20/25 07:20 04/20/25 07:20 04/20/25 07:20 04/20/25 07:20
Lab Results
04/19/25 08:15
04/19/25 08:15
Calcium 8.2 mg/dl (8.4-10.2) L 04/19/25 08:15
Phosphorus 3.2 mg/dl (2.5-4.5) 04/17/25 06:03
Magnesium 2.4 mg/dl (1.6-2.3) H 04/17/25 06:03
Total Bilirubin 2.5 mg/dl (0.2-1.3) H 04/16/25 08:07
AST 17 U/L (17-59) 04/16/25 08:07
ALT 16 U/L (0-50) 04/16/25 08:07
Alkaline Phosphatase 72 U/L (38-126) 04/16/25 08:07
Total Protein 6.5 g/dl (6.3-8.2) 04/16/25 08:07
Albumin 3.6 g/dl (3.5-5.0) 04/16/25 08:07
Physical Exam
-
Gen: NAD
Abd: soft, approp ttp, dressing cdi
Patient has a romero catheter: No
Patient has a central line: No
--- NOTE | 2025-04-20 10:36 | PTOTSP ---
The patient was observed ambulating independently in the hallway. Patient denied concerns regarding his mobility and is agreeable to PT signing off at this time.
--- NOTE | 2025-04-20 14:25 | CM ---
Chart reviewed; case management will monitor for discharge needs
[2025-04-20] MEDS: LOVENOX 40 MG SC (17:18)
[2025-04-20 23:03] VITALS: BP 144/70
[2025-04-21] MEDS: TORADOL IV ×2 (03:21→09:50)
[2025-04-21] MEDS: ZOSYN 50 IV ×4 (05:46→23:56)
[2025-04-21] MEDS: SYNTHROID 50 MCG PO (05:46)
[2025-04-21 07:35] VITALS: BP 151/75
--- NOTE | 2025-04-21 09:27 | W.PN.GS2 ---
Today's Communication / Plan
-
Check labs
Assessment / Plan
-
44 yo male presenting with Meckel's diverticulitis now POD #5 Dx lap converted to open ex lap with SBR and right hemicolectomy, partial omentectomy
AFVSS
Leukocytosis normalized
Bowel function returning
Mild acute anemia secondary to hemodilution and expected operative losses, do not suspect active bleeding.
Renal function good
New abd pain today
Plan:
Check labs
Cont LRD
Cont prn dilaudid. Continue scheduled toradol and ofirmev
OOB/Ambulate as able
IS while awake
c/w IV zosyn
PPI for GI ppx
SCDS with sq Lovenox for VTE ppx
Subjective Data
-
Date of Service: April 21, 2025
Low grade temp 99.4F, reports new pain to RLQ and RUQ, appetite food, denies n/v, passing flatus and BMs
Objective Data
-
Intake and Output
25 25 04/22/25
06:59 06:59 06:59
Intake Total 3030 / 3030 2119 / 0 240 / 240
Output Total 500 / 500
Balance 2530 / 2530 2119 / 2119 240 / 240
Intake:
Oral fluids 480 / 480 1920 / 1920 240 / 240
IV fluids (Total) 2310 / 2310 50 / 50
IV piggybacks 150 / 150 150 / 150
Amount instilled into GI Tube ( 90 / 90
Total)
[place] Sump 90 / 90
Output:
Gastrointestinal tube output ( 500 / 500
Total)
[place] Sump 500 / 500
Other:
Number of approximated MODERATE 4
amounts of urine
Vital Signs
Temp Pulse Resp BP Pulse Ox
99.4 F 60 16 151/75 99
04/21/25 07:35 04/21/25 07:35 04/21/25 07:35 04/21/25 07:35 04/21/25 07:35
Calcium 8.2 mg/dl (8.4-10.2) L 04/19/25 08:15
Phosphorus 3.2 mg/dl (2.5-4.5) 04/17/25 06:03
Magnesium 2.4 mg/dl (1.6-2.3) H 04/17/25 06:03
Total Bilirubin 2.5 mg/dl (0.2-1.3) H 04/16/25 08:07
AST 17 U/L (17-59) 04/16/25 08:07
ALT 16 U/L (0-50) 04/16/25 08:07
Alkaline Phosphatase 72 U/L (38-126) 04/16/25 08:07
Total Protein 6.5 g/dl (6.3-8.2) 04/16/25 08:07
Albumin 3.6 g/dl (3.5-5.0) 04/16/25 08:07
Physical Exam
-
Gen: NAD
Abd: soft, minimal ttp to rlq/ruq nd, obese, dressing cdi
Patient has a romero catheter: No
Patient has a central line: No
[2025-04-21] MEDS: NSS (PRESERVATIVE FREE) IV (09:50)
[2025-04-21] MEDS: PROTONIX IV IV (09:50)
[2025-04-21 09:51] LABS: Hematocrit 31.5 % (39.0-52.0); Hemoglobin 10.1 g/dL (13.0-18.0); Mean Corp Hgb Conc. 32.1 g/dL (33.0-37.0); Mean Corpuscular Volume 83.3 fL (80.0-94.0); Platelet Count 309 10^3/uL (130-400); Red Cell Dist. Width 13.2 % (11.5-14.5)
[2025-04-21] MEDS: OMNIPAQUE 50 ML PO (10:33)
[2025-04-21 10:42] LABS: Blood Urea Nitrogen 9 mg/dl (9-20); Calcium 8.6 mg/dl (8.4-10.2); Carbon Dioxide 29 mmol/L (22-30); Chloride 99 mmol/L (98-107); Estimated Creatinine Clearance 124 ml/min; Glucose 127 mg/dl (70-99); Potassium 4.0 mmol/L (3.5-5.1); Sodium 136 mmol/L (135-145); eGFR > 60.00
[2025-04-21 15:00] VITALS: BP 127/72
[2025-04-21] MEDS: LOVENOX 40 MG SC (17:55)
[2025-04-21] MEDS: TYLENOL 1000 MG PO (17:56)
[2025-04-21] MEDS: NORVASC 5 MG PO (21:13)
[2025-04-21 23:09] VITALS: BP 136/73
[2025-04-22 05:13] VITALS: BMI 37.4
[2025-04-22] MEDS: SYNTHROID 50 MCG PO (06:14)
[2025-04-22] MEDS: ZOSYN 50 IV (06:15)
[2025-04-22 06:26] LABS: Hematocrit 30.0 % (39.0-52.0); Hemoglobin 9.8 g/dL (13.0-18.0); Mean Corp Hgb Conc. 32.7 g/dL (33.0-37.0); Mean Corpuscular Volume 81.3 fL (80.0-94.0); Platelet Count 318 10^3/uL (130-400); Red Cell Dist. Width 13.3 % (11.5-14.5)
[2025-04-22 07:00] VITALS: BP 131/80
[2025-04-22] MEDS: NSS (PRESERVATIVE FREE) IV ×2 (08:32→08:35)
[2025-04-22] MEDS: PROTONIX IV IV ×2 (08:33→08:35)
--- NOTE | 2025-04-22 11:46 | W.PN.GS2 ---
Today's Communication / Plan
-
DC
Assessment / Plan
-
44 yo male presenting with Meckel's diverticulitis now POD #5 Dx lap converted to open ex lap with SBR and right hemicolectomy, partial omentectomy
AFVSS
Leukocytosis normalized
Bowel function returning
Mild acute anemia secondary to hemodilution and expected operative losses, do not suspect active bleeding.
Renal function good
Abd pain improved
Labs OK
Plan:
OK for DC home with 4 days PO abx
Subjective Data
-
Date of Service: April 22, 2025
AFVSS, ambulating, voiding, passing flatus, amaris PO
Objective Data
-
Intake and Output
04/21/25 04/22/25 04/23/25
06:59 06:59 06:59
Intake Total 2120 / 2120 2260 / 2260 100 / 100
Balance 2120 / 2120 2260 / 2260 100 / 100
Intake:
Oral fluids 1920 / 1920 2160 / 2160
IV fluids (Total) 50 / 50
IV piggybacks 150 / 150 100 / 100 100 / 100
Other:
Number of approximated MODERATE 4 2
amounts of urine
Number of approximated LARGE 2
amounts of urine
Number of unmeasured liquid
stools
Rectum 1
Vital Signs
Temp Pulse Resp BP Pulse Ox
98.5 F 70 16 131/80 95
04/22/25 07:00 04/22/25 07:00 04/22/25 07:00 04/22/25 07:00 04/22/25 07:00
Lab Results
04/22/25 05:25
04/21/25 09:31
Calcium 8.6 mg/dl (8.4-10.2) 04/21/25 09:31
Phosphorus 3.2 mg/dl (2.5-4.5) 04/17/25 06:03
Magnesium 2.4 mg/dl (1.6-2.3) H 04/17/25 06:03
Total Bilirubin 2.5 mg/dl (0.2-1.3) H 04/16/25 08:07
AST 17 U/L (17-59) 04/16/25 08:07
ALT 16 U/L (0-50) 04/16/25 08:07
Alkaline Phosphatase 72 U/L (38-126) 04/16/25 08:07
Total Protein 6.5 g/dl (6.3-8.2) 04/16/25 08:07
Albumin 3.6 g/dl (3.5-5.0) 04/16/25 08:07
Physical Exam
-
Gen: NAD
Abd: soft, approp ttp, incison cdi with valentín
Patient has a romero catheter: No
Patient has a central line: No
[2025-04-22 12:34] VITALS: BP 132/78
--- NOTE | 2025-04-24 07:35 | W.DS.TRANS ---
Addendum entered and electronically signed by DIETER Hawkins 04/24/25 07:39:
dictated #[id number]
Original Note:
DC Summary - [employer]
-
Discharge Instructions:
Sleep Apnea Risk Intermediate
Discharge Diagnosis/Procedures Perforated Meckel's diverticulitis
Diet Low Residue
Activity No strenuous activity
Bathing Restrictions OK to Shower
Wound Care Cover incision as needed if there is drainage,
some drainage is normal as long as it looks
clear yellow or red, if it looks like pus,
please call me.
Instructions: Colectomy (DC)
Exploratory abdominal surgery (DC)
Stand-Alone Forms:
Changes to Home Medications: No
Discharge Medications:
DC Medications w/original date entered in [employer]
levothyroxine 50 mcg tablet (Levoxyl) 50 mcg PO DAILY Thyroid 08/14/23
amlodipine 5 mg tablet (Norvasc) 5 mg PO QPM Blood Pressure 03/29/25
levofloxacin 750 mg tablet 750 mg PO DAILY 4 days #4 tabs 04/22/25
metronidazole 500 mg tablet 500 mg PO Q8H #12 tabs 04/22/25
Home Medication Changes
Pending Results: No
== END 2025-04-22 12:35 | disposition home or self-care (01) | DRG 330 ==
LOC: 2 SOUTH 23:46
PROVIDERS: Emergency Medicine; Nurse Practitioner Family; Registered Nurse; ADMITTING PHYSICIAN Surgery; EMERGENCY PHYSICIAN Emergency Medicine; FAMILY PHYSICIAN Family Medicine
PROC: 0DTF0ZZ Resection of Right Large Intestine, Open Approach (ICD-10-PCS; 2025-04-16)
PROC: 0DB80ZZ Excision of Small Intestine, Open Approach (ICD-10-PCS; 2025-04-16)
PROC: 0DBU0ZZ Excision of Omentum, Open Approach (ICD-10-PCS; 2025-04-16)
DX: Q43.0 Meckel's diverticulum (displaced) (hypertrophic) (principal); D62 Acute posthemorrhagic anemia; K63.0 Abscess of intestine; E87.1 Hypo-osmolality and hyponatremia; I48.91 Unspecified atrial fibrillation; E03.9 Hypothyroidism, unspecified; I10 Essential (primary) hypertension; K52.9 Noninfective gastroenteritis and colitis, unspecified; Z88.0 Allergy status to penicillin; Z79.890 Hormone replacement therapy; Z53.31 Laparoscopic surgical procedure converted to open procedure; Z11.52 Encounter for screening for COVID-19
CPT/HCPCS: 74018; 74177; 80048; 80053; 83605; 83690; 83735; 84100; 85025; 85027; 86850; 86900; 86901; 86920; 87040; 87502; 87811; 88307; 96365; 97162; 99284; Q9967